=== PATIENT | male | born 1940 | race Caucasian/White ===

== ENCOUNTER 2017-04-01 22:23 | Emergency (ER) | payer OTHER ==
[~2017-04-01] VITALS: Ht 170.2 cm; Wt 77.3 kg
[~2017-04-01 22:23] MED LIST: ALAV10TA PO; ASPI81TA82 PO; BISC10SU RE; GUAI400T8 PO; KETO2SHA5 TOP; METO25 PO; OMPR20CCR PO; SIMV5TAB32 PO; TERA2CAP3 PO; [UNRECOGNIZED DRUG - CODE] TOP
[2017-04-01 22:25] VITALS: BP 136/62; PULSE 67; RESP 16; TEMP 97.8; O2SAT 95
[2017-04-01 22:41] VITALS: BP 136/62; PULSE 67; RESP 16; TEMP 97.8
[2017-04-01] MEDS ORDERED: SODIUM CHLORID 0.9% 500 ML INJ 500 ML IV ONE (22:45)
[2017-04-01] MEDS ORDERED: ONDANSETRON HCL 4 MG/2 ML VIAL IV PUSH ONE (22:45)
[2017-04-01] MEDS ORDERED: MORPHINE SULFATE 4 MG/ML INJ IV PUSH ONE (22:45)
--- NOTE | 2017-04-01 22:45 | PD ---
HPI Chief Complaint: Abdominal Pain Time Seen by Provider: 22:32 Travel History International Travel<30 days: No Contact w/Intl Traveler<30days: No History of Present Illness HPI This is a 76-year-old male who presents to the emergency department having had a colonoscopy this morning with increasing lower abdominal discomfort throughout the day described as a soreness, nonradiating, moderate severity. He reports he's vomited several times, and he had some loose stools. The stools of been nonbloody. He does feel like he has a fever. PFSH Past Medical History Asthma: No Autoimmune Disease: No Blood Disorders: No Cancer: Yes High Cholesterol: Yes Chemotherapy: No COPD: Yes Cerebrovascular Accident: No Diabetes: No Endocrine: No Gastrointestinal Disorders: Yes GERD: Yes Glaucoma: No Headaches: No Hepatitis: No Hypertension: Yes Immune Disorder: No Musculoskeletal: No Neurologic: Yes Psychiatric: No Respiratory: Yes (MICROSIS FUNGI OF LUNGS) Integumentary: Yes Immunizations Current: Yes Myocardial Infarction: Yes (LA X2 ) Radiation Therapy: Yes Seizures: No Sickle Cell Disease: No Sleep Apnea: No Thyroid Disease: No Ulcer: No Past Surgical History Abdominal Surgery: Yes (APPENDECTOMY) AICD: No Appendectomy: Yes Arteriovenous Shunt: No Cardiac Surgery: Yes (QUADRUPLE BYPASS 16 YRS AGO) Cholecystectomy: No Coronary Artery Bypass Graft: Yes (quadruple) Ear Surgery: No Endocrine Surgery: No Eye Surgery: No Genitourinary Surgery: No Gynecologic Surgery: No Insulin Pump: No Joint Replacement: No Neurologic Surgery: No Oral Surgery: Yes (TONSILLECTOMY) Pacemaker: No Thoracic Surgery: No Tonsillectomy: Yes Other Surgery: Yes Social History Alcohol Use: No Tobacco Use: No (former) Substance Use: No Allergies-Medications (Allergen,Severity, Reaction): Coded Allergies: No Known Allergies (Verified , 04/23/16) Reported Meds & Prescriptions Reported Meds & Active Scripts Active Reported Biscolax (Bisacodyl) 10 Mg Sup 10 Mg RE Q48H Aspir-81 (Aspirin) 81 Mg Tab 81 Mg PO DAILY Vanicream (Emollient) Cre 1 Drop TOP DAILY Prilosec 20 Mg Cap (Omeprazole) 20 Mg Capcr 20 Mg PO BID Terazosin Hcl (Terazosin HCl) 2 Mg Cap 5 Mg PO DAILY Metoprolol Tartrate 25 mg (Metoprolol Tartrate) 25 Mg Tab 25 Mg PO BID Alavert (Loratadine) 10 Mg Tab 10 Mg PO DAILY PRN Ketoconazole 2 % Sha 1 Applic TOP BID Guaifenesin 400 Mg Tab 400 Mg PO QID Zocor (Simvastatin) 5 Mg Tab 20 Mg PO HS Review of Systems Except as stated in HPI: all other systems reviewed are Neg Physical Exam Narrative GENERAL:Well appearing, no acute distress SKIN: Focused skin assessment warm and dry. HEAD: Atraumatic. Normocephalic. EYES: Pupils equal and round. No injection or drainage. ENT: Moist mucous membranes NECK: Trachea midline. CARDIOVASCULAR: Regular rate and rhythm. No murmur appreciated. RESPIRATORY: Clear to auscultation. Breath sounds equal bilaterally. GASTROINTESTINAL: Abdomen soft,moderately tender to palpation in the left upper and lower quadrants and in the right lower quadrant with no rebound/guarding. Old incisional scar in the lower mid abdomen. MUSCULOSKELETAL: No obvious deformities. NEUROLOGICAL: Awake and alert. No obvious cranial nerve deficits. Moving all extremities. PSYCHIATRIC: Appropriate mood and affect; insight and judgment normal. Data Data Last Documented VS Vital Signs Date Time Temp Pulse Resp B/P Pulse Ox O2 Delivery O2 Flow Rate FiO2 04/01/17 22:46 16 04/01/17 22:41 97.8 67 136/62 04/01/17 22:25 95 Orders Complete Blood Count With Diff (04/01/17 22:40) Comprehensive Metabolic Panel (04/01/17 22:40) Lactic Acid (04/01/17 22:40) Ct Abd/Pel W Iv Contrast(Rout) (04/01/17 ) ^ Insert Iv (04/01/17 22:40) Ondansetron Inj (Zofran Inj) (04/01/17 22:45) Sodium Chlorid 0.9% 500 Ml Inj (Ns 500 M (04/01/17 22:45) Morphine Inj (Morphine Inj) (04/01/17 23:00) Urinalysis - C+S If Indicated (04/01/17 23:14) Lipase (04/01/17 23:00) Labs Laboratory Tests Test 04/01/17 04/01/17 23:00 23:21 White Blood Count 9.5 TH/MM3 Red Blood Count 4.96 MIL/MM3 Hemoglobin 15.4 GM/DL Hematocrit 45.5 % Mean Corpuscular Volume 91.8 FL Mean Corpuscular Hemoglobin 31.1 PG Mean Corpuscular Hemoglobin 33.9 % Concent Red Cell Distribution Width 12.2 % Platelet Count 187 TH/MM3 Mean Platelet Volume 9.4 FL Neutrophils (%) (Auto) 84.2 % Lymphocytes (%) (Auto) 6.9 % Monocytes (%) (Auto) 5.7 % Eosinophils (%) (Auto) 0.3 % Basophils (%) (Auto) 2.9 % Neutrophils # (Auto) 8.0 TH/MM3 Lymphocytes # (Auto) 0.7 TH/MM3 Monocytes # (Auto) 0.5 TH/MM3 Eosinophils # (Auto) 0.0 TH/MM3 Basophils # (Auto) 0.3 TH/MM3 CBC Comment DIFF FINAL Differential Comment Sodium Level 142 MEQ/L Potassium Level 4.0 MEQ/L Chloride Level 106 MEQ/L Carbon Dioxide Level 27.1 MEQ/L Anion Gap 9 MEQ/L Blood Urea Nitrogen 18 MG/DL Creatinine 1.10 MG/DL Estimat Glomerular Filtration 65 ML/MIN Rate Random Glucose 139 MG/DL Lactic Acid Level 1.1 mmol/L Calcium Level 9.3 MG/DL Total Bilirubin 0.6 MG/DL Aspartate Amino Transf 35 U/L (AST/SGOT) Alanine Aminotransferase 39 U/L (ALT/SGPT) Alkaline Phosphatase 90 U/L Total Protein 8.0 GM/DL Albumin 4.1 GM/DL Lipase 126 U/L Urine Color YELLOW Urine Turbidity CLEAR Urine pH 5.5 Urine Specific [place] 1.016 Urine Protein NEG mg/dL Urine Glucose (UA) NEG mg/dL Urine Ketones 15 mg/dL Urine Occult Blood TRACE Urine Nitrite NEG Urine Bilirubin NEG Urine Leukocyte Esterase NEG Urine RBC 0-3 /hpf Urine WBC 0-2 /hpf Urine Squamous Epithelial 0-5 /hpf Cells Urine Bacteria NONE /hpf Microscopic Urinalysis Comment CULT NOT INDICATED MDM Medical Decision Making Medical Screen Exam Complete: Yes Emergency Medical Condition: Yes Interpretation(s) Afebrile, no tachycardia, normotensive No leukocytosis 84% neutrophils Electrolytes are reassuring Lipase is normal Lactic acid is 1.1 Urinalysis: Some ketones Differential Diagnosis Perforation, diarrhea in the setting of colonoscopy prep, gastroenteritis, bowel obstruction, diverticulitis Narrative Course This is a 76-year-old male who presents to the emergency department with lower abdominal discomfort that started after having a colonoscopy this morning. He' s been having vomiting and loose stools. He also has been having some fevers and chills. He's nontoxic appearing on exam and has some tenderness in the lower abdomen with no peritoneal signs. Labs were obtained which were all reassuring. CT abdomen and pelvis will be obtained to rule out perforation. Ruth Brush MD Apr 01, 2017 22:45
[2017-04-01] MEDS ORDERED: MORPHINE SULFATE 8 MG/ML INJ IV PUSH ONE (23:00)
[2017-04-01 23:22] LABS: BASOPHIL # 0.3 TH/MM3 (0-0.2); BASOPHIL % 2.9 % (0.0-2.0); EOSINOPHIL % 0.3 % (0.0-4.0); HEMATOCRIT 45.5 % (39.0-51.0); LYMPH % 6.9 % (9.0-44.0); LYMPHOCYTE # 0.7 TH/MM3 (1.0-4.8); MEAN CELL VOLUME 91.8 FL (80.0-100.0); MEAN CORPUSCULAR HEMOGLOBIN 31.1 PG (27.0-34.0); MEAN CORPUSCULAR HGB CONC 33.9 % (32.0-36.0); MONO % 5.7 % (0.0-8.0); NEUT % 84.2 % (16.0-70.0); PLATELET COUNT 187 TH/MM3 (150-450); RED BLOOD COUNT 4.96 MIL/MM3 (4.50-5.90); RED CELL DISTRIBUTION WIDTH 12.2 % (11.6-17.2); WHITE BLOOD COUNT 9.5 TH/MM3 (4.0-11.0)
[2017-04-01 23:24] LABS: HEMO FLAGS DIFF FINAL
[2017-04-01 23:29] LABS: BLOOD, URINE TRACE (NEG); GLUCOSE,URINE NEG (NEG); KETONE, URINE 15 mg/dL (NEG); NITRITE,URINE NEG (NEG); PH, URINE 5.5 (5.0-8.5)
[2017-04-01 23:33] LABS: CHLORIDE 106 MEQ/L (98-107); SODIUM (NA) 142 MEQ/L (136-145)
[2017-04-01 23:35] VITALS: BP 138/66; PULSE 63; RESP 16; O2SAT 94
[2017-04-01 23:36] LABS: COMMENT (UR) CULT NOT INDICATED; CULTURE IF INDICATED CULT NOT INDICATED; RBC, URINE 0-3 /hpf (0-3); SQUAMOUS EPITHELIAL CELL URINE 0-5 /hpf (0-5); URINE COLOR YELLOW (YELLW/STRAW); WBC, URINE 0-2 /hpf (0-5)
[2017-04-01 23:37] LABS: ANION GAP 9 MEQ/L (5-15); BICARBONATE 27.1 MEQ/L (21.0-32.0); BLOOD UREA NITROGEN 18 MG/DL (7-18)
[2017-04-01 23:40] LABS: ALT (GPT) 39 U/L (12-78); AST (GOT) 35 U/L (15-37); GLOMERULAR FILTRATION RATE 65 ML/MIN (>89)
[2017-04-01 23:42] LABS: TOTAL BILIRUBIN ADULT 0.6 MG/DL (0.2-1.0)
[2017-04-01 23:43] LABS: ALKALINE PHOSPHATASE 90 U/L (45-117)
[2017-04-01] MEDS ORDERED: IOHEXOL 350 MG/ML 10 ML VIAL (for RAD DIAG) IV ONE (23:56)
--- NOTE | 2017-04-02 00:06 | RADRPT ---
EXAM DATE/TIME: 04/01/2017 23:45 [facility] COMPARISON: CT ABDOMEN & PELVIS W CONTRAST, December 20, 2013, 19:02. INDICATIONS : Left lower abdominal pain status post colonoscopy. IV CONTRAST: 100 cc Omnipaque 350 (iohexol) IV ORAL CONTRAST: No oral contrast ingested. RADIATION DOSE: 12.53 CTDIvol (mGy) MEDICAL HISTORY : Gastroesophageal reflux disease. Cardiovascular disease Carcinoma, not otherwise specified. SURGICAL HISTORY : Appendectomy. ENCOUNTER: Initial ACUITY: 1 day PAIN SCALE: 10/10 LOCATION: Left lower quadrant abdomen TECHNIQUE: Volumetric scanning of the abdomen and pelvis was performed. Using automated exposure control and ad justment of the mA and/or kV according to patient size, radiation dose was kept as low as reasonably achievable to obtain optimal diagnostic quality images. DICOM format image data is available electro nically for review and comparison. FINDINGS: LOWER LUNGS: The visualized lower lungs are clear. LIVER: Homogeneous density without lesion. There is no dilation of the biliary tree. No calcified gallston es. SPLEEN: Normal size without lesion. PANCREAS: Within normal limits. KIDNEYS: Normal in size and shape. There is no mass, stone or hydronephrosis. ADRENAL GLANDS: Within normal limits. VASCULAR: There is no aortic aneurysm. BOWEL/MESENTERY: Diverticulosis without diverticulitis. There are some mildly prominent small bowel loops in the upper to mid abdomen. No bowel obstruction. There is no free intraperitoneal air or fluid. ABDOMINAL WALL: Within normal limits. RETROPERITONEUM: There is no lymphadenopathy. BLADDER: No wall thickening or mass. REPRODUCTIVE: Prominent prostate containing calcifications. INGUINAL: There is no lymphadenopathy or hernia. MUSCULOSKELETAL: Within normal limits for patient age. CONCLUSION: 1. Mildly prominent small bowel loops in the mid abdomen without obstruction. 2. Status post cholecystectomy. 3. Prominent prostate. 4. Scattered diverticulosis without diverticulitis. Jaren Amin MD on April 02, 2017 at 0:02 Board Certified Radiologist. This report was verified electronically.
--- NOTE | 2017-04-02 00:23 | PD ---
Physical Exam Date Seen by Provider: Apr 02, 2017 Time Seen by Provider: 00:20 Narrative accepted in transfer of care from Dr Brush @ 0110 GENERAL: Well-developed elderly male in no acute distress no respiratory distress SKIN: Warm and dry. HEAD: Normocephalic. EYES: No scleral icterus. No injection or drainage. NECK: Supple, trachea midline. No JVD or lymphadenopathy. CARDIOVASCULAR: Regular rate and rhythm without murmurs, gallops, or rubs. RESPIRATORY: Breath sounds equal bilaterally. No accessory muscle use. GASTROINTESTINAL: Abdomen soft, non-tender, no guarding no rebound positive active bowel sounds. Nondistended. MUSCULOSKELETAL: No cyanosis, or edema. BACK: Nontender without obvious deformity. No CVA tenderness. Data Data Last Documented VS Vital Signs Date Time Temp Pulse Resp B/P Pulse Ox O2 Delivery O2 Flow Rate FiO2 04/02/17 01:27 97.8 62 16 148/63 97 Room Air Orders Complete Blood Count With Diff (04/01/17 22:40) Comprehensive Metabolic Panel (04/01/17 22:40) Lactic Acid (04/01/17 22:40) Ct Abd/Pel W Iv Contrast(Rout) (04/01/17 ) ^ Insert Iv (04/01/17 22:40) Ondansetron Inj (Zofran Inj) (04/01/17 22:45) Sodium Chlorid 0.9% 500 Ml Inj (Ns 500 M (04/01/17 22:45) Morphine Inj (Morphine Inj) (04/01/17 23:00) Urinalysis - C+S If Indicated (04/01/17 23:14) Lipase (04/01/17 23:00) Iohexol 350 Inj (Omnipaque 350 Inj) (04/01/17 23:56) Labs Laboratory Tests Test 04/01/17 04/01/17 23:00 23:21 White Blood Count 9.5 TH/MM3 Red Blood Count 4.96 MIL/MM3 Hemoglobin 15.4 GM/DL Hematocrit 45.5 % Mean Corpuscular Volume 91.8 FL Mean Corpuscular Hemoglobin 31.1 PG Mean Corpuscular Hemoglobin 33.9 % Concent Red Cell Distribution Width 12.2 % Platelet Count 187 TH/MM3 Mean Platelet Volume 9.4 FL Neutrophils (%) (Auto) 84.2 % Lymphocytes (%) (Auto) 6.9 % Monocytes (%) (Auto) 5.7 % Eosinophils (%) (Auto) 0.3 % Basophils (%) (Auto) 2.9 % Neutrophils # (Auto) 8.0 TH/MM3 Lymphocytes # (Auto) 0.7 TH/MM3 Monocytes # (Auto) 0.5 TH/MM3 Eosinophils # (Auto) 0.0 TH/MM3 Basophils # (Auto) 0.3 TH/MM3 CBC Comment DIFF FINAL Differential Comment Sodium Level 142 MEQ/L Potassium Level 4.0 MEQ/L Chloride Level 106 MEQ/L Carbon Dioxide Level 27.1 MEQ/L Anion Gap 9 MEQ/L Blood Urea Nitrogen 18 MG/DL Creatinine 1.10 MG/DL Estimat Glomerular Filtration 65 ML/MIN Rate Random Glucose 139 MG/DL Lactic Acid Level 1.1 mmol/L Calcium Level 9.3 MG/DL Total Bilirubin 0.6 MG/DL Aspartate Amino Transf 35 U/L (AST/SGOT) Alanine Aminotransferase 39 U/L (ALT/SGPT) Alkaline Phosphatase 90 U/L Total Protein 8.0 GM/DL Albumin 4.1 GM/DL Lipase 126 U/L Urine Color YELLOW Urine Turbidity CLEAR Urine pH 5.5 Urine Specific [place] 1.016 Urine Protein NEG mg/dL Urine Glucose (UA) NEG mg/dL Urine Ketones 15 mg/dL Urine Occult Blood TRACE Urine Nitrite NEG Urine Bilirubin NEG Urine Leukocyte Esterase NEG Urine RBC 0-3 /hpf Urine WBC 0-2 /hpf Urine Squamous Epithelial 0-5 /hpf Cells Urine Bacteria NONE /hpf Microscopic Urinalysis Comment CULT NOT INDICATED MDM Medical Record Reviewed: Yes Supervised Visit with SHADIA: No Interpretation(s) Last Impressions Abdomen/Pelvis CT 04/01/17 0000 Signed Impressions: Service Date/Time: Saturday, April 01, 2017 23:45 - CONCLUSION: 1. Mildly prominent small bowel loops in the mid abdomen without obstruction. 2. Status post cholecystectomy. 3. Prominent prostate. 4. Scattered diverticulosis without diverticulitis. Jaren Amin MD CBC & BMP Diagram 04/01/17 23:00 Differential Diagnosis accepted in transfer of care from Dr Brush; please refer to her dictation Narrative Course accepted in transfer of care from Dr Brush; follow up of CT results and patient disposition CT abdomen and pelvis resulted no evidence for bowel obstruction or perforation per reading radiologist a few loops of mildly prominent small bowel mid abdomen ; patient's blood pressure is 125/58 heart rate is 68 respirations are 16 and nonlabored room air O2 saturations 94% temperature is 97.8F GCS is 15; patient reports that his abdominal pain has resolved; physical exam abdomen is soft nontender no guarding no rebound positive active bowel sounds without tinkle or grind for obstruction nondistended nonrigid. Patient feels well. Total white cell count is normal with normal range lactic acid of 1.1; Patient is given a trial of oral hydration. Plan is to allow patient to be discharged to home with close follow-up to his managing provider. Patient is able to take oral hydration well. Diagnosis Primary Impression: Abdominal pain Qualified Code: R10.33 - Periumbilical abdominal pain Referrals: [facility] 1 day Primary Care Physician 1 day Patient Instructions: General Instructions, Narcotic given in the ED Additional Instruction: Follow clear liquid diet for next 12-24 hours advance as tolerated bland/Fidelia diet and regular diet Follow-up with your primary care provider and area operations manager call office in a.m. Monitor temperature every 4 hours with thermometer take as needed acetaminophen for fever 100.4F or greater Return to the emergency department for pain fever vomiting or any concerns Takes Zofran as prescribed as needed for nausea and/or vomiting Med/Other Pt SpecificInfo: Prescription(s) given Scripts Ondansetron Odt (Zofran Odt)4 Mg Tab4 Mg SL Q6HR PRN (Nausea/Vomiting) #10 TAB Ref 0 Prov:Juliette Alamo MD 04/02/17 Disposition: DISCHARGE HOME Condition: Stable Juliette Alamo MD Apr 02, 2017 00:23
[2017-04-02 00:48] VITALS: BP 125/58; PULSE 68; RESP 16; TEMP 97.8; O2SAT 94
[2017-04-02 01:27] VITALS: BP 148/63; PULSE 62; RESP 16; TEMP 97.8; O2SAT 97
[2017-04-02] MEDS ORDERED: ZOFR4TAB3 SL (01:53)
== END 2017-04-02 02:10 | disposition home or self-care (01) ==
LOC: PHED 22:23
DX: R10.33 Periumbilical pain (principal); K57.30 Diverticulosis of large intestine without perforation or abscess without bleeding; Z90.49 Acquired absence of other specified parts of digestive tract; J44.9 Chronic obstructive pulmonary disease, unspecified; I10 Essential (primary) hypertension; K21.9 Gastro-esophageal reflux disease without esophagitis; E78.00 Pure hypercholesterolemia, unspecified; I25.2 Old myocardial infarction; Z95.1 Presence of aortocoronary bypass graft
CPT/HCPCS: 74177; 80053; 81001; 83605; 83690; 85025; 96361; 96374; 96375; 99285; J2270; J2405; J7040; Q9967

== ENCOUNTER 2018-05-23 21:37 | Inpatient (IN) ==
--- NOTE | 2018-05-23 23:05 | XR ---
EXAM DATE: 05/23/2018 10:57 PM EDT AGE/SEX: 77 years / Male INDICATIONS: Nausea and cold symptoms. CLINICAL DATA: This is the patient's initial encounter. Patient reports that signs and symptoms have been present for 1 day and indicates a pain score of 0/10. MEDICAL/SURGICAL HISTORY: Chronic obstructive pulmonary disease. CABG. COMPARISON: [facility], CT ABDOMEN & PELVIS W CONTRAST, 04/01/2017. . FINDINGS: No infiltrate, effusion or pneumothorax demonstrated. Heart size is normal. Patient has had previous median sternotomy and coronary artery bypass graft operation. CONCLUSION: No acute cardiopulmonary disease demonstrated. Electronically signed by: Lukasz Boyer MD 05/23/2018 11:04 PM EDT
[2018-05-23 23:09] LABS: Baso % (Auto) 0.2 % (0.0-2.0); Eos % (Auto) 0.3 % (0.0-4.0); Hematocrit 43.2 % (39.0-51.0); Hemoglobin 15.2 gm/dL (13.0-17.0); Lymph # (Auto) 0.7 th/mm3 (1.0-4.8); Lymph % (Auto) 12.2 % (9.0-44.0); Mean Corpuscular HGB Conc 35.2 % (32.0-36.0); Mean Corpuscular Hemoglobin 31.8 pg (27.0-34.0); Mean Corpuscular Volume 90.4 fL (80.0-100.0); Mean Platelet Volume 9.8 fL (7.0-11.0); Mono # (Auto) 0.5 th/mm3 (0.0-0.9); Mono % (Auto) 9.8 % (0.0-8.0); Neut # (Auto) 4.2 th/mm3 (1.8-7.7); Neut % (Auto) 77.5 % (16.0-70.0); Platelet Count 180 th/mm3 (150-450); Red Blood Count 4.78 mil/mm3 (4.50-5.90); White Blood Count 5.4 th/mm3 (4.0-11.0)
[2018-05-23 23:22] LABS: Activated Partial Thrombo Time 23.8 sec (24.3-30.1); Prothrombin Time 10.4 sec (9.8-11.6)
[2018-05-23 23:42] LABS: Alanine Aminotransferase 20 U/L (12-78); Albumin 3.7 g/dL (3.4-5.0); Anion Gap 12 meq/L (5-15); Aspartate Aminotransferase 20 U/L (15-37); Blood Urea Nitrogen 22 mg/dL (7-18); Calcium 9.1 mg/dL (8.5-10.1); Carbon Dioxide 30.4 meq/L (21.0-32.0); Chloride 94 meq/L (98-107); Glomerular Filtration Rate 65 mL/min (>89); Glucose,Random 137 mg/dL (74-106); Lipase 174 U/L (73-393); Potassium 3.5 meq/L (3.5-5.1); Sodium 136 meq/L (136-145)
[2018-05-23 23:46] LABS: Alkaline Phosphatase 72 U/L (45-117); Creatine Kinase 161 U/L (39-308)
[2018-05-24] MEDS ORDERED: Sodium Chlor 0.9% Inj 500 ML IV.SIG ONE (00:08)
[2018-05-24] MEDS ORDERED: Morphine Inj 4 MG/ML Vial IV.PUSH ONE (00:08)
--- NOTE | 2018-05-24 00:28 | ED ---
HPI General Chief complaint: Abdominal Pain Stated complaint: vomitting/cold symp Time Seen by Provider: 05/23/18 22:22 Source: patient and family Limitations: no limitations History of Present Illness HPI narrative: The patient is a 77 year old male who presents to the [facility] emergency department with a history of abdominal pain that he reports recurred on afternoon. The patient reports that he has a history of abdominal pain in the past related to recurrent bowel obstructions. He reports that he has had abdominal surgeries twice related to bowel obstructions with adhesion lysis. The patient reports that his last bowel obstruction occurred when he was visiting [place] in November 2017. The patient reports that the abdominal pain is generalized. He reports that the pain has been sharp in character. He reports that it waxes and wanes in severity. He reports that he has had vomiting too many times to count. He reports that he has had vomiting 4 times today. He reports also having intermittent diarrhea. He denies having any diarrhea today, however yesterday he had 6 episodes. He denies having any known fevers. He reports that he has been seen by his [facility] physician approximately a month ago and was referred for additional testing. He reports that this past he had some testing done, however he does not know the results or the name of the tests that were completed. He denies being seen by a etched circuit processor. On review of systems otherwise, the patient denies having any recent cough or congestion, neck pain, chest pain, shortness of breath, or neurologic symptoms. The patient reports that he has been urinating less frequently today. He reports that he is only urinated once. He denies having any dysuria, urinary urgency, or urinary frequency. Related Data Home Medications Medication Instructions Recorded Confirmed metoprolol tartrate 25 mg PO BID 05/23/18 05/23/18 omeprazole 20 mg PO DAILY 05/23/18 05/23/18 simvastatin 10 mg PO QPM 05/23/18 05/23/18 tamsulosin 0.4 mg PO DAILY 05/23/18 05/23/18 Allergies Allergy/AdvReac Type Severity Reaction Status Date / Time No Known Allergies Allergy Unverified 05/23/18 21:53 Review of Systems ROS: all other systems reviewed are negative (Except for that which was mentioned in the HPI) [facility] Medical History Medical History COPD (chronic obstructive pulmonary disease) (Acute) Enlarged prostate (Acute) Heart attack (Acute) High cholesterol (Acute) Hypertension (Acute) Bowel obstruction (Acute) GERD (gastroesophageal reflux disease) (Acute) Surgical History Surgical History H/O coronary artery bypass surgery (Acute) History of cardiac cath (Acute) History of appendectomy (Acute) Hx of tonsillectomy (Acute) Social History Social History Substance History: No History of Abuse Second Hand Smoke Exposure: No Smoking Status: Never smoker How Often Do You Have a Drink Containing Alcohol: Never Recent Travel in [facility] within the Last 8 Weeks: No Recent Out of Country Travel within the Last 8 Weeks: No Immunization History Tetanus Immunization: <5 Years Hx Influenza Vaccine This Season: No Exam Const General: cooperative, well developed and acute distress (Reportedly related to abdominal pain.) mild Nutritional Appearance: well nourished Orientation: alert, awake and oriented x3 HENMT Head: normocephalic and atraumatic Nose: no nasal discharge and no epistaxis Mouth: moist mucous membranes Throat: posterior oropharynx normal and uvula midline Eyes Sclera: normal sclerae Pupils: PERRL Neck Neck: no meningeal signs, trachea midline and no JVD Resp Effort & Inspection: no use of accessory muscles Auscultation: clear to auscultation bilaterally Cardio Rate: regular rate Rhythm: regular rhythm Heart Sounds: no murmurs GI Inspection: distended (Mildly distended) Palpation: soft, no hepatosplenomegaly, no guarding, not rigid and tender in the epigastrum, in the LLQ and in the LUQ; not in the RLQ, not in the RUQ, not at McBurney's point and Cruz's sign negative Auscultation: hypoactive bowel sounds Back/Spine/Pelvis Back: no CVA tenderness Skin General: dry skin (warm) Neuro General: alert, awake and oriented x3 Cranial Nerves: other Speech: speech normal Motor: no movement abnormalities noted Extrem General: normal to inspection (No calf tenderness on palpation. 2+ pulses in all 4 extremities.), no clubbing, no cyanosis and no edema Psych Mood: congruent mood Affect: normal affect Judgment: judgment good Course Consultations Consultation #1: The patient's case including history, pertinent physical examination findings, and laboratory studies were discussed with Dr. Bobby. It was agreed that the patient would be admitted to the hospitalist service. Initial Documented Vital Signs Temperature 98 F 05/23/18 21:53 Pulse Rate 68 05/23/18 21:53 Respiratory Rate 16 05/23/18 21:53 Blood Pressure 130/61 05/23/18 21:53 Pulse Oximetry 97 05/23/18 21:53 Last Documented Vital Signs Temperature 98.1 F 05/23/18 23:02 Pulse Rate 63 05/24/18 05:42 Respiratory Rate 18 05/24/18 05:42 Blood Pressure 166/72 H 05/24/18 05:42 Pulse Oximetry 93 L 05/24/18 05:42 Medical Decision Making MDM Narrative Medical decision making narrative: During the course of the patient's emergency department visit, the patient's history, examination, and differential diagnosis were reviewed with the patient. The patient was placed on a clinical research monitor with oximetry and frequent blood pressure monitoring. The patient had IV access obtained and blood work sent for analysis. Diagnostic evaluation was started regarding the patient's abdominal pain, vomiting, and diarrhea. The patient was initially provided normal saline IV fluids, morphine for pain, Zofran for nausea. The patient's diagnostic evaluation is remarkable for a white count of 5.4, platelets 180, neutrophil percent 77.5, hemoglobin 15.2, PT 10.4, PTT 23.8, chemistry is remarkable for troponin I of less than 0.02, glucose 137, GFR of 65 , chloride 94, BUN 22, lipase within normal limits, lactic acid is 1.5, urinalysis shows small occult blood, moderate mucus, hazy urine otherwise unremarkable. A chest x-ray shows no acute cardiopulmonary disease, CT scan of the abdomen and pelvis shows a study that is limited by streak artifact from barium within the colon. There is evidence of acute small bowel obstruction probably at the level of the proximal ileum and presumably related to adhesions. No perceptible mass. The patient will have an NG tube placed to low intermittent suction. The patient will be admitted to the hospital for small bowel obstruction related to adhesions. The patient's results were discussed with the patient, including the plan of care. I explained that further testing and/ or monitoring is indicated based on the patient's history, examination, and/ or laboratory findings. Therefore, I recommended admission for additional evaluation. The patient expressed understanding and was agreeable with this plan. The patient was admitted to the hospital in stable condition and sent to a bed under the care of the [facility] service. Medical Screen Exam Complete: Yes Emergency Medical Condition: Yes Differential Diagnosis Differential Diagnosis: Bowel obstruction, versus acute pancreatitis, versus gastroenteritis, versus colitis, versus ischemic bowel Medical Records Medical records reviewed: Yes I reviewed the patient's medical records. Lab Data Lab results reviewed: Yes I reviewed the patient's lab results. Result diagrams: 05/23/18 22:55 05/23/18 22:55 Lab Results 05/23/18 05/23/18 05/23/18 Range/Units 22:55 22:55 22:55 WBC 5.4 (4.0-11.0) th/mm3 RBC 4.78 (4.50-5.90) mil/mm3 Hgb 15.2 (13.0-17.0) gm/dL Hct 43.2 (39.0-51.0) % MCV 90.4 (80.0-100.0) fL MCH 31.8 (27.0-34.0) pg MCHC 35.2 (32.0-36.0) % RDW 13.0 (11.6-17.2) % Plt Count 180 (150-450) th/mm3 MPV 9.8 (7.0-11.0) fL Neut % (Auto) 77.5 H (16.0-70.0) % Lymph % (Auto) 12.2 (9.0-44.0) % Creek % (Auto) 9.8 H (0.0-8.0) % Eos % (Auto) 0.3 (0.0-4.0) % Baso % (Auto) 0.2 (0.0-2.0) % Neut # (Auto) 4.2 (1.8-7.7) th/mm3 Lymph # (Auto) 0.7 L (1.0-4.8) th/mm3 Creek # (Auto) 0.5 (0.0-0.9) th/mm3 Eos # (Auto) 0.0 (0.0-0.4) th/mm3 Baso # (Auto) 0.0 (0.0-0.2) th/mm3 WBC Differential . Differential Comment Auto diff final PT 10.4 (9.8-11.6) sec INR 1.0 Ratio APTT 23.8 L (24.3-30.1) sec Sodium 136 (136-145) meq/L Potassium 3.5 (3.5-5.1) meq/L Chloride 94 L (98-107) meq/L Carbon Dioxide 30.4 (21.0-32.0) meq/L Anion Gap 12 (5-15) meq/L BUN 22 H (7-18) mg/dL Creatinine 1.10 (0.60-1.30) mg/dL Estimated GFR 65 L (>89) mL/min Random Glucose 137 H (74-106) mg/dL Lactic Acid (0.4-2.0) mmol/L Calcium 9.1 (8.5-10.1) mg/dL Total Bilirubin 0.6 (0.2-1.0) mg/dL AST 20 (15-37) U/L ALT 20 (12-78) U/L Alkaline Phosphatase 72 (45-117) U/L Total Creatine Kinase 161 (39-308) U/L CK-MB (CK-2) Less than 1.0 (0.5-3.6) ng/mL Troponin I Less than 0.02 L (0.02-0.05) ng/mL Total Protein 8.0 (6.4-8.2) g/dL Albumin 3.7 (3.4-5.0) g/dL Lipase 174 (73-393) U/L Urine Color (Yellw/Straw) Urine Clarity (Clear) Urine pH (5.0-8.5) Ur Specific Hancock (1.002-1.035) Urine Protein (Neg-Trace) mg/dL Urine Glucose (UA) (Negative) mg/dL Urine Ketones (Negative) mg/dL Urine Occult Blood (Negative) Urine Nitrate (Negative) Urine Bilirubin (Negative) Urine Urobilinogen (Less than 2) mg/dL Ur Leukocyte Esterase (Negative) Urine RBC (0-3) /hpf Urine WBC (0-5) /hpf Ur Squamous Epith Cells (0-5) /hpf Urine Mucus (Occasional) /lpf Micro UA Comment Ur Microscopic Review Urine Culture Comments 05/23/18 05/24/18 Range/Units 22:55 05:23 WBC (4.0-11.0) th/mm3 RBC (4.50-5.90) mil/mm3 Hgb (13.0-17.0) gm/dL Hct (39.0-51.0) % MCV (80.0-100.0) fL MCH (27.0-34.0) pg MCHC (32.0-36.0) % RDW (11.6-17.2) % Plt Count (150-450) th/mm3 MPV (7.0-11.0) fL Neut % (Auto) (16.0-70.0) % Lymph % (Auto) (9.0-44.0) % Creek % (Auto) (0.0-8.0) % Eos % (Auto) (0.0-4.0) % Baso % (Auto) (0.0-2.0) % Neut # (Auto) (1.8-7.7) th/mm3 Lymph # (Auto) (1.0-4.8) th/mm3 Creek # (Auto) (0.0-0.9) th/mm3 Eos # (Auto) (0.0-0.4) th/mm3 Baso # (Auto) (0.0-0.2) th/mm3 WBC Differential Differential Comment PT (9.8-11.6) sec INR Ratio APTT (24.3-30.1) sec Sodium (136-145) meq/L Potassium (3.5-5.1) meq/L Chloride (98-107) meq/L Carbon Dioxide (21.0-32.0) meq/L Anion Gap (5-15) meq/L BUN (7-18) mg/dL Creatinine (0.60-1.30) mg/dL Estimated GFR (>89) mL/min Random Glucose (74-106) mg/dL Lactic Acid 1.5 (0.4-2.0) mmol/L Calcium (8.5-10.1) mg/dL Total Bilirubin (0.2-1.0) mg/dL AST (15-37) U/L ALT (12-78) U/L Alkaline Phosphatase (45-117) U/L Total Creatine Kinase (39-308) U/L CK-MB (CK-2) (0.5-3.6) ng/mL Troponin I (0.02-0.05) ng/mL Total Protein (6.4-8.2) g/dL Albumin (3.4-5.0) g/dL Lipase (73-393) U/L Urine Color Yellow (Yellw/Straw) Urine Clarity Hazy H (Clear) Urine pH 5.0 (5.0-8.5) Ur Specific Hancock 1.013 (1.002-1.035) Urine Protein Negative (Neg-Trace) mg/dL Urine Glucose (UA) Negative (Negative) mg/dL Urine Ketones Trace (Negative) mg/dL Urine Occult Blood Small H (Negative) Urine Nitrate Negative (Negative) Urine Bilirubin Negative (Negative) Urine Urobilinogen Less than 2 (Less than 2) mg/dL Ur Leukocyte Esterase Negative (Negative) Urine RBC 1 (0-3) /hpf Urine WBC 2 (0-5) /hpf Ur Squamous Epith Cells <1 (0-5) /hpf Urine Mucus Moderate H (Occasional) /lpf Micro UA Comment Culture not ind Ur Microscopic Review Not Reportable Urine Culture Comments Culture not ind Imaging Data Radiologist's impression: Chest X-Ray 05/23/18 22:38 CONCLUSION: No acute cardiopulmonary disease demonstrated. Abdomen/Pelvis CT 05/24/18 00:00 CONCLUSION: Study limited by metallic streak artifact from barium within the colon. There is evidence of acute small bowel obstruction, probably at the level of the proximal ileum and presumably related to adhesion. No perceptible mass. ECG Data Attestation: I personally reviewed and interpreted this ECG as follows: Interpretation: Patient had a EKG done on arrival. The patient's EKG reveals a sinus rhythm with occasional supraventricular premature complexes, heart rate of 61, QRS duration is 108 ms, QTC [address] segment elevation is noted. Q waves are noted in lead III, aVF, lead II. Discharge Plan Discharge Disposition Patient Disposition: 30 Still Patient Discharge Details Diagnosis: SBO (small bowel obstruction) Physicians Team ED Provider: Yessy Shah Primary Care Provider: [facility] 's Attending Provider: Presley Nagel Other Providers: Sam Velarde Discharge Interventions Interventions: Vital Signs Last Done: 05/24/18 03:00 Status ED Status: Admitted Patient
--- NOTE | 2018-05-24 00:45 | CT ---
EXAM DATE: 05/24/2018 12:29 AM EDT AGE/SEX: 77 years / Male INDICATIONS: Diffuse abdominal pain X one week. Patient had a barium study done and has no t been able to eat or drink since. CLINICAL DATA: This is the patient's initial encounter. Patient reports that signs and symptoms have been present for 1 week and indicates a pain score of 6/10. MEDICAL/SURGICAL HISTORY: Chronic obstructive pulmonary disease. Hypertension. Gastroesophage al reflux disease. Myocardial infarction, enlarged prostate CABG. Appendectomy. Tonsillectomy. RADIATION DOSE: 6.64 CTDI (mGy) COMPARISON: [facility], CT ABDOMEN & PELVIS W CONTRAST, 04/01/2017. . TECHNIQUE: Multiple contiguous axial images were obtained through the abdomen. Images were obtained using multiple row detector helical technique. Using automated exposure control and adjustment of the mA and/or kV according to patient size, radiation dose was kept as low as reasonably achievable to o btain optimal diagnostic quality images. DICOM format image data is available electronically for rev iew and comparison. FINDINGS: Dense contrast with associated metallic streak artifact is present in the colon, presumably a recent barium enema. Colon is decompressed. There are diverticula of the sigmoid colon but no perceptible ac marco colonic inflammatory changes. Proximal portions of the small bowel are distended. The mid and distal ileum are decompressed. I charlotte rowdy there is transition in the anterior portions of the upper pelvic cavity. No free fluid or free ai r demonstrated. Only mild distention of the stomach at the time of imaging. No acute solid organ abnormality demonstrated. Atherosclerosis of the abdominal aorta noted. No aneurysm. Visualized lung bases are clear. CONCLUSION: Study limited by metallic streak artifact from barium within the colon. There is evidence of acute small bowel obstruction, probably at the level of the proximal ileum and presumably related to adhesion. No perceptible mass. Electronically signed by: Lukasz Boyer MD 05/24/2018 12:44 AM EDT
[2018-05-24] MEDS ORDERED: Bisacodyl 10 MG Supp RECTAL PRN (02:15)
[2018-05-24] MEDS: Sod Chloride 0.9% Inj 1,000 ML IV.CONT SCH ×2 (02:22→13:13)
[2018-05-24] MEDS ORDERED: Morphine Inj 4 MG/ML Vial IV.PUSH PRN ×2 (02:30)
--- NOTE | 2018-05-24 02:59 | P.HPIM ---
History of Present Illness Primary Care Physician: Physician [facility] History of Present Illness: This is a 77-year-old male with a PMH of HTN, Hyperlipidemia, COPD and h/o SBO who presented to the ER w/ complaints of abdominal pain x3 days. Reports pain is intermittent, moderate-severe, 8/10, non-radiating, associated w/ nausea/ vomiting. Denies fever. On arrival, BP 130/61, HR 68, O2 sat 97% on RA, Afebrile. CBC essentially unremarkable. INR 1.0. Chemistry unremarkable except for GFR 65, BUN 22. CXR with no acute findings. CT Abdomen/Pelvis with acute small bowel obstruction, probably at the level of proximal ileum presumably related to adhesion, no mass. - Diagnosis (1) SBO (small bowel obstruction) (2) Dehydration Inpatient Certification: I certify that the inpatient services were ordered in accordance with Medicare regulations governing the order. This includes certification that hospital inpatient services are reasonable and necessary and in the case of services not specified as inpatient-only under 42 CFR 419.22(n), that they are appropriately provided as inpatient services in accordance to with the 2-midnight benchmark under 43 CFR 412.3(e) Estimated Total Length of Stay (Days): 2 Plans for Post Hospital Care: Not yet determined Review of Systems PAST FAMILY HISTORY: Reviewed. No h/o DM or CAD All other systems reviewed negative except as stated in HPI [facility] - History History Provided By: Patient - Medical History Medical History: Medical History (Last Updated 05/24/18 @ 00:25 by Yessy Shah MD) COPD (chronic obstructive pulmonary disease) Enlarged prostate Heart attack High cholesterol Hypertension Bowel obstruction GERD (gastroesophageal reflux disease) - Surgical History Surgical History: Surgical History (Last Reviewed 05/24/18 @ 00:24 by Yessy Shah MD) H/O coronary artery bypass surgery History of cardiac cath History of appendectomy Hx of tonsillectomy - Tobacco History Second Hand Smoke Exposure: No Smoking Status: Never smoker - Alcohol History How Often Do You Have a Drink Containing Alcohol: Never - Substance Use History Substance History: No History of Abuse - Travel History Recent Travel in the [place] Within the Last 8 Weeks: No Recent Travel Out of the Country Within the Last 8 Weeks: No - Immunization History Tetanus Immunization: <5 Years Hx Influenza Vaccine This Season: No Medications and Allergies Active Medications: Active Medications Al Hydroxide/Mg Hydroxide (Milk Of Magnesia Liq) 30 ml PO Q12H PRN PRN Reason: Mild Constipation Bisacodyl (Dulcolax Supp) 10 mg RECTAL DAILY PRN PRN Reason: SEVERE CONSITIPATION Sodium Chloride (Ns Inj) 1,000 mls @ 100 mls/hr IV.CONT .Q10H [facility] Last Admin: 05/24/18 02:22 Dose: 100 mls/hr Lactulose (Lactulose Liq) 30 ml PO DAILY PRN PRN Reason: SEVERE CONSITIPATION Morphine Sulfate (Morphine Inj) 1 mg IV.PUSH Q4H PRN PRN Reason: PAIN 3-5 Morphine Sulfate (Morphine Inj) 2 mg IV.PUSH Q4H PRN PRN Reason: PAIN 6-10 Ondansetron HCl (Zofran Inj) 4 mg IV.PUSH Q6H PRN PRN Reason: NAUSEA OR VOMITING Senna/Docusate Sodium (Pratibha-Colace) 1 tab PO BID MELISSA Sennosides (Senokot) 17.2 mg PO Q12H PRN PRN Reason: Moderate Constipation Sodium Chloride (Ns Flush) 2 ml IV.FLUSH PRN PRN PRN Reason: FLUSH AFTER USING IV ACCESS Allergies Allergy/AdvReac Type Severity Reaction Status Date / Time No Known Allergies Allergy Unverified 05/23/18 21:53 Home Medications Medication Instructions Recorded Confirmed Type metoprolol tartrate 25 mg PO BID 05/23/18 05/23/18 History omeprazole 20 mg PO DAILY 05/23/18 05/23/18 History simvastatin 10 mg PO QPM 05/23/18 05/23/18 History tamsulosin 0.4 mg PO DAILY 05/23/18 05/23/18 History Exam Vital signs: Vital Signs 05/23/18 21:53 05/23/18 21:58 05/23/18 22:45 Temperature 98 F Pulse Rate 68 71 Respiratory Rate 16 18 Blood Pressure 130/61 177/71 H Pulse Oximetry 97 97 97 05/23/18 23:02 Temperature 98.1 F Pulse Rate Respiratory Rate Blood Pressure Pulse Oximetry Intake & Output 05/23/18 05/23/18 05/24/18 06:59 18:59 06:59 Intake Total 500 / 500 Balance 500 / 500 Weight 74.843 kg Intake: IV 500 / 500 NS Inj 500 ML @ Wide Open IV. 500 / 500 SIG BOLUS ONE Rx#:[id number] Narrative: PE: GENERAL: Very pleasant elderly [place] male in no acute distress, appears comfortable. at bedside. HEENT: PERRLA, EOMI. No scleral icterus or conjunctival pallor. No lid lag or facial droop. CARDIOVASCULAR: Regular rate and rhythm. No obvious murmurs to auscultation. No chest tenderness to palpation. RESPIRATORY: No obvious rhonchi or wheezing. Clear to auscultation. Breath sounds equal bilaterally. GASTROINTESTINAL: Abdomen soft, non-tender, nondistended. BS normal. MUSCULOSKELETAL: Extremities without clubbing, cyanosis, or edema. No obvious deformities. NEUROLOGICAL: Awake, alert and oriented x4. No focal neurologic deficits. Moving both upper and lower extremities spontaneously. Results - Labs CBC & Chem 7: 05/23/18 22:55 05/23/18 22:55 Labs: Short CBC 05/23/18 Range/Units 22:55 WBC 5.4 (4.0-11.0) th/mm3 Hgb 15.2 (13.0-17.0) gm/dL Hct 43.2 (39.0-51.0) % Plt Count 180 (150-450) th/mm3 BMP 05/23/18 22:55 Sodium 136 Potassium 3.5 Chloride 94 L Carbon Dioxide 30.4 BUN 22 H Creatinine 1.10 Calcium 9.1 Cardiac Enzymes 05/23/18 Range/Units 22:55 Total Creatine Kinase 161 (39-308) U/L CK-MB (CK-2) Less than 1.0 (0.5-3.6) ng/mL Troponin I Less than 0.02 L (0.02-0.05) ng/mL Liver Function 05/23/18 Range/Units 22:55 Total Bilirubin 0.6 (0.2-1.0) mg/dL AST 20 (15-37) U/L ALT 20 (12-78) U/L Alkaline Phosphatase 72 (45-117) U/L Albumin 3.7 (3.4-5.0) g/dL - Imaging Impressions Chest X-Ray 05/23/18 22:38 CONCLUSION: No acute cardiopulmonary disease demonstrated. Abdomen/Pelvis CT 05/24/18 00:00 CONCLUSION: Study limited by metallic streak artifact from barium within the colon. There is evidence of acute small bowel obstruction, probably at the level of the proximal ileum and presumably related to adhesion. No perceptible mass. Caprini VTE Risk Assessment Caprini VTE Risk Assessment: No/Low Risk (score <= 1) Caprini Risk Assessment Model: Point Value = 1 Point Value = 2 Point Value = 3 Point Value = 5 Age 41-60 Minor surgery BMI > 25 kg/m2 Swollen legs Varicose veins or History of unexplained or recurrent spontaneous Oral contraceptives or hormone replacement Sepsis (< 1 month) Serious lung disease, including pneumonia (< 1 month) Abnormal pulmonary function Acute myocardial infarction Congestive heart failure (< 1 month) History of inflammatory bowel disease Medical patient at bed rest Age 61-74 Arthroscopic surgery Major open surgery (> 45 min) Laparoscopic surgery (> 45 min) Malignancy Confined to bed (> 72 hours) Immobilizing plaster cast Central venous access Age >= 75 History of VTE Family history of VTE Factor V Leiden Prothrombin 43714H Lupus anticoagulant Anticardiolipin antibodies Elevated serum homocysteine Heparin-induced thrombocytopenia Other congenital or acquired thrombophilia Stroke (< 1 month) Elective arthroplasty Hip, pelvis, or leg fracture Acute spinal cord injury (< 1 month) Prophylaxis Regimen: Total Risk Factor Score Risk Level Prophylaxis Regimen 0-1 Low Early ambulation 2 Moderate Order ONE of the following: *Sequential Compression Device (SCD) *Heparin 5000 units SQ BID 3-4 Higher Order ONE of the following medications: *Heparin 5000 units SQ TID *Enoxaparin/Lovenox 40 mg SQ daily (WT < 150 kg, CrCl > 30 mL/min) *Enoxaparin/Lovenox 30 mg SQ daily (WT < 150 kg, CrCl > 10-29 mL/min) *Enoxaparin/Lovenox 30 mg SQ BID (WT < 150 kg, CrCl > 30 mL/min) AND/OR *Sequential Compression Device (SCD) 5 or more Highest Order ONE of the following medications: *Heparin 5000 units SQ TID (Preferred with Epidurals) *Enoxaparin/Lovenox 40 mg SQ daily (WT < 150 kg, CrCl > 30 mL/min) *Enoxaparin/Lovenox 30 mg SQ daily (WT < 150 kg, CrCl > 10-29 mL/min) *Enoxaparin/Lovenox 30 mg SQ BID (WT < 150 kg, CrCl > 30 mL/min) AND *Sequential Compression Device (SCD) Assessment and Plan - Assessment (1) SBO (small bowel obstruction) Code(s): K56.609 - Unspecified intestinal obstruction, unspecified as to partial versus complete obstruction Status: Acute (2) Dehydration Code(s): E86.0 - Dehydration Status: Acute - Plan A/P: 1. SBO: Recurrent. H/o SBO secondary to adhesions requiring surgical intervention in the past, now w/ abdominal pain, nausea/vomiting. CT Abd/ Pelvis w/ acute obstruction in prox ileum due to adhesions, no mass, images reviewed. NPO, NGT, IVF, analgesics/antiemetics as needed, Consult Gen Sx for further eval 2. Dehydration: BUN 22, GFR 65, IVF for hydration, repeat labs in am, monitor I/O 3. DVT Prophylaxis: SCD/teds. 4. Social work for DC planning as needed. 5. Case discussed at length with the ER physician, lab/record/imaging reviewed by me.
[2018-05-24 06:02] LABS: Bilirubin,Urine Negative (Negative); Clarity,Urine Hazy (Clear); Color,Urine Yellow (Yellw/Straw); Glucose,Urine (UA) Negative (Negative); Leukocyte Esterase,Urine Negative (Negative); Mucus,Urine Moderate /lpf (Occasional); Nitrite,Urine Negative (Negative); Specific Gravity,Urine 1.013 (1.002-1.035); Squamous Epithelial Cell,Urine <1 /hpf (0-5)
[2018-05-24] MEDS: Senna/Docusate Sodium 8.6/50 MG Tablet PO SCH ×2 (09:07→22:30)
--- NOTE | 2018-05-24 11:18 | P.CONGS ---
HPI Gen Surgery Consult Note Consult date: 05/24/18 Reason for consult: other (abdominal pain; recurrent SBO) Requesting physician: Viridiana Bobby Narrative: This is a 77 year old male with a past medical history hypertension, dyslipidemia, COPD, enlarged prostate, GERD and recurrent small bowel obstructions. He reports that he has had on and off abdominal pain for the past two weeks. He has what sounds like a possible small bowel follow through with barium contrast done at the [place] last week. He developed nausea and vomiting on . He reports his last bowel movement was Thursday but he does continue to have flatus. He reports his abdominal pain is greatly improved now. A CT abdomen/pelvis was obtained which indicate small bowel obstruction at the level of the proximal ileum questionably secondary to adhesions although the barium contrast is visible to the colon. A KUB was done today which again shows contrast moving through. His labs are unremarkable except for a mildly elevated BUN at 22. A General Surgery consultation has been requested. Review of Systems Constitutional: Denies chills, Denies fever(s) Eyes: Denies blurry vision Ears, Nose, Mouth, and Throat: Denies headache(s) Cardiovascular: Denies chest pain, Denies chest pain at rest, Denies chest pain with activity Gastrointestinal: Reports abdominal pain, Reports nausea, Reports vomiting Genitourinary: Denies urinary incontinence, Denies urinary urgency Musculoskeletal: Denies muscle weakness Skin/Breast: Denies rash Neurologic: Denies abnormal hearing Psychiatric: Denies anxiety, Denies depression Endocrine: Denies cold intolerance, Denies heat intolerance Hematologic/Lymphatic: Denies easy bleeding Allergic/Immunologic: Denies GI upset with certain foods PMFSH - History History Provided By: Patient - Medical History Medical History: Medical History (Last Reviewed 05/24/18 @ 18:44 by Phillip Soler MD) COPD (chronic obstructive pulmonary disease) Enlarged prostate Heart attack High cholesterol Hypertension Bowel obstruction GERD (gastroesophageal reflux disease) - Surgical History Surgical History: Surgical History (Last Reviewed 05/24/18 @ 18:44 by Phillip Soler MD) H/O coronary artery bypass surgery History of cardiac cath History of appendectomy Hx of tonsillectomy - Tobacco History Second Hand Smoke Exposure: Yes Smoking Status: Never smoker - Alcohol History How Often Do You Have a Drink Containing Alcohol: Monthly or less - Substance Use History Substance History: No History of Abuse - Travel History Recent Travel in the [place] Within the Last 8 Weeks: No Recent Travel Out of the Country Within the Last 8 Weeks: No - Immunization History Tetanus Immunization: <5 Years Hx Influenza Vaccine This Season: No Medications and Allergies Allergies Allergy/AdvReac Type Severity Reaction Status Date / Time No Known Allergies Allergy Unverified 05/23/18 21:53 Home Medications Medication Instructions Recorded Confirmed Type metoprolol tartrate 25 mg PO BID 05/23/18 05/23/18 History omeprazole 20 mg PO DAILY 05/23/18 05/23/18 History simvastatin 10 mg PO QPM 05/23/18 05/23/18 History tamsulosin 0.4 mg PO DAILY 05/23/18 05/23/18 History Active Medications: Active Medications Al Hydroxide/Mg Hydroxide (Milk Of Magnesia Liq) 30 ml PO Q12H PRN PRN Reason: Mild Constipation Bisacodyl (Dulcolax Supp) 10 mg RECTAL DAILY PRN PRN Reason: SEVERE CONSITIPATION Sodium Chloride (Ns Inj) 1,000 mls @ 100 mls/hr IV.CONT .Q10H [facility] Last Admin: 05/24/18 02:22 Dose: 100 mls/hr Lactulose (Lactulose Liq) 30 ml PO DAILY PRN PRN Reason: SEVERE CONSITIPATION Morphine Sulfate (Morphine Inj) 1 mg IV.PUSH Q4H PRN PRN Reason: PAIN 3-5 Morphine Sulfate (Morphine Inj) 2 mg IV.PUSH Q4H PRN PRN Reason: PAIN 6-10 Ondansetron HCl (Zofran Inj) 4 mg IV.PUSH Q6H PRN PRN Reason: NAUSEA OR VOMITING Senna/Docusate Sodium (Pratibha-Colace) 1 tab PO BID [facility] Last Admin: 05/24/18 09:07 Dose: 1 tab Sennosides (Senokot) 17.2 mg PO Q12H PRN PRN Reason: Moderate Constipation Sodium Chloride (Ns Flush) 2 ml IV.FLUSH PRN PRN PRN Reason: FLUSH AFTER USING IV ACCESS Exam Vital signs: Vital Signs 05/23/18 21:53 05/23/18 21:58 05/23/18 22:45 Temperature 98 F Pulse Rate 68 71 Respiratory Rate 16 18 Blood Pressure 130/61 177/71 H Pulse Oximetry 97 97 97 05/23/18 23:02 05/24/18 03:00 05/24/18 05:42 Temperature 98.1 F Pulse Rate 66 63 Respiratory Rate 18 18 Blood Pressure 164/77 H 166/72 H Pulse Oximetry 96 93 L 05/24/18 06:56 05/24/18 08:00 Temperature 97.5 F L Pulse Rate 62 56 L Respiratory Rate 18 12 Blood Pressure 124/60 142/67 H Pulse Oximetry 95 95 Intake & Output 05/23/18 05/24/18 05/24/18 18:59 06:59 18:59 Intake Total 500 / 500 Balance 500 / 500 Weight 74.843 kg Intake: IV 500 / 500 NS Inj 500 ML @ Wide Open IV. 500 / 500 SIG BOLUS ONE Rx#:[id number] Narrative: GENERAL: Pleasant 77 year old male resting in bed in no acute distress. SKIN: Warm and dry. HEAD: Atraumatic. Normocephalic. EYES: Pupils equal and round. No scleral icterus. No injection or drainage. ENT: No nasal bleeding or discharge. Mucous membranes pink and moist. NECK: Trachea midline. CARDIOVASCULAR: Regular rate and rhythm. Well healed sternal incision. RESPIRATORY: No accessory muscle use. Clear to auscultation. Breath sounds equal bilaterally. GASTROINTESTINAL: Abdomen soft, nondistended. Mild epigastric tenderness to palpation. Well healed midline incision. MUSCULOSKELETAL: Extremities without clubbing, cyanosis, or edema. No obvious deformities. NEUROLOGICAL: Awake and alert. No obvious cranial nerve deficits. Motor grossly within normal limits. Five out of 5 muscle strength in the arms and legs. Normal speech. PSYCHIATRIC: Appropriate mood and affect; insight and judgment normal. Results - Labs 05/23/18 22:55 05/23/18 22:55 Laboratory Results WBC 5.4 th/mm3 (4.0-11.0) 05/23/18 22:55 RBC 4.78 mil/mm3 (4.50-5.90) 05/23/18 22:55 Hgb 15.2 gm/dL (13.0-17.0) 05/23/18 22:55 Hct 43.2 % (39.0-51.0) 05/23/18 22:55 MCV 90.4 fL (80.0-100.0) 05/23/18 22:55 MCH 31.8 pg (27.0-34.0) 05/23/18 22:55 MCHC 35.2 % (32.0-36.0) 05/23/18 22: RDW 13.0 % (11.6-17.2) 05/23/18 22: Plt Count 180 th/mm3 (150-450) 05/23/18 22:55 MPV 9.8 fL (7.0-11.0) 05/23/18 22: Neut % (Auto) 77.5 % (16.0-70.0) H 05/23/18 22:55 Lymph % (Auto) 12.2 % (9.0-44.0) 05/23/18 22: [place] % (Auto) 9.8 % (0.0-8.0) H 05/23/18: Eos % (Auto) 0.3 % (0.0-4.0) 05/23/18: Baso % (Auto) 0.2 % (0.0-2.0) 05/23/18: Neut # (Auto) 4.2 th/mm3 (1.8-7.7) 05/23/18 22: Lymph # (Auto) 0.7 th/mm3 (1.0-4.8) L 05/23/18 22: [place] # (Auto) 0.5 th/mm3 (0.0-0.9) 05/23/18 22: Eos # (Auto) 0.0 th/mm3 (0.0-0.4) 05/23/18: Baso # (Auto) 0.0 th/mm3 (0.0-0.2) 05/23/18 22:55 WBC Differential . 05/23/18: Differential Comment Auto diff final 05/23/18: PT 10.4 sec (9.8-11.6) 05/23/18: INR 1.0 Ratio 05/23/18: APTT 23.8 sec (24.3-30.1) L 05/23/18 22:55 Sodium 136 meq/L (136-145) 05/23/18 22: Potassium 3.5 meq/L (3.5-5.1) 05/23/18:55 Chloride 94 meq/L (98-107) L 05/23/18 22:55 Carbon Dioxide 30.4 meq/L (21.0-32.0) 05/23/18 22:55 Anion Gap 12 meq/L (5-15) 05/23/18 22:55 BUN 22 mg/dL (7-18) H 05/23/18 22:55 Creatinine 1.10 mg/dL (0.60-1.30) 05/23/18 22:55 Estimated GFR 65 mL/min (>89) L 05/23/18 22:55 Random Glucose 137 mg/dL (74-106) H 05/23/18 22:55 Lactic Acid 1.5 mmol/L (0.4-2.0) 05/23/18 22:55 Calcium 9.1 mg/dL (8.5-10.1) 05/23/18 22:55 Total Bilirubin 0.6 mg/dL (0.2-1.0) 05/23/18 22:55 AST 20 U/L (15-37) 05/23/18 22:55 ALT 20 U/L (12-78) 05/23/18 22:55 Alkaline Phosphatase 72 U/L (45-117) 05/23/18 22:55 Total Creatine Kinase 161 U/L (39-308) 05/23/18 22:55 CK-MB (CK-2) Less than 1.0 ng/mL (0.5-3.6) 05/23/18 22:55 Troponin I Less than 0.02 ng/mL (0.02-0.05) L 05/23/18 22:55 Total Protein 8.0 g/dL (6.4-8.2) 05/23/18 22:55 Albumin 3.7 g/dL (3.4-5.0) 05/23/18 22:55 Lipase 174 U/L (73-393) 05/23/18 22:55 Urine Color Yellow (Yellw/Straw) 05/24/18 05:23 Urine Clarity Hazy (Clear) H 05/24/18 05:23 Urine pH 5.0 (5.0-8.5) 05/24/18 05:23 Ur Specific [place] 1.013 (1.002-1.035) 05/24/18 05:23 Urine Protein Negative mg/dL (Neg-Trace) 05/24/18 05:23 Urine Glucose (UA) Negative mg/dL (Negative) 05/24/18 05:23 Urine Ketones Trace mg/dL (Negative) 05/24/18 05:23 Urine Occult Blood Small (Negative) H 05/24/18 05:23 Urine Nitrate Negative (Negative) 05/24/18 05:23 Urine Bilirubin Negative (Negative) 05/24/18 05:23 Urine Urobilinogen Less than 2 mg/dL (Less than 2) 05/24/18 05:23 Ur Leukocyte Esterase Negative (Negative) 05/24/18 05:23 Urine RBC 1 /hpf (0-3) 05/24/18 05:23 Urine WBC 2 /hpf (0-5) 05/24/18 05:23 Ur Squamous Epith Cells <1 /hpf (0-5) 05/24/18 05:23 Urine Mucus Moderate /lpf (Occasional) H 05/24/18 05:23 Micro UA Comment Culture not ind 05/24/18 05:23 Ur Microscopic Review Not Reportable 05/24/18 05:23 Urine Culture Comments Culture not ind 05/24/18 05:23 Impressions Chest X-Ray 05/23/18 22:38 CONCLUSION: No acute cardiopulmonary disease demonstrated. Abdomen/Pelvis CT 05/24/18 00:00 CONCLUSION: Study limited by metallic streak artifact from barium within the colon. There is evidence of acute small bowel obstruction, probably at the level of the proximal ileum and presumably related to adhesion. No perceptible mass. ITS Impressions Chest X-Ray 05/23/18 22:38 CONCLUSION: No acute cardiopulmonary disease demonstrated. Abdomen X-Ray 05/24/18 00:00 CONCLUSION: 1. Persistent abnormally dilated small bowel although less distended than present on the a prior CT from approximately 12 hours ago. Consider additional follow-up imaging to confirm resolution of this abnormality. 2. Sigmoid diverticulosis. Abdomen/Pelvis CT 05/24/18 00:00 CONCLUSION: Study limited by metallic streak artifact from barium within the colon. There is evidence of acute small bowel obstruction, probably at the level of the proximal ileum and presumably related to adhesion. No perceptible mass. - Imaging Abdominal x-ray: report reviewed, image reviewed CT scan - abdomen: report reviewed, image reviewed Assessment and Plan - Assessment (1) SBO (small bowel obstruction) Code(s): K56.609 - Unspecified intestinal obstruction, unspecified as to partial versus complete obstruction Status: Acute Plan: 77 year old male with recurrent SBO -KUB this AM shows contrast moving through -Recommend IVF due to mild dehydration -Will start full liquid diet and advance as tolerated -Mag citrate x 1 dose today -Will attempt non surgical management as the patient does have contrast moving though on his CT scan and KUB -Thank you for this consult; We will continue to follow - Plan Discussed Condition With: Dr. Soler Mr. Dudley + son and daughter in law (Aida who is an RN) at the bedside - Attending Attestation NOTE FOR SURGICAL ATTENDING, DR. PHILLIP SOLER I agree with above assessment and plan. KUB reviewed as well as CT scan Patient seen in the emergency room Ambulating around We will treat patient nonoperatively as there is contrast filling his colon from his recent small bowel follow-through He adds that he has a fair amount of diarrhea which is not consistent with small bowel obstruction The exam, history, and the medical decision-making described in the above note were completed with the assistance of the mid-level provider. I reviewed and agree with the findings presented. I attest that I had a [id number] encounter with the patient on the same day, and personally performed and documented my assessment and findings in the medical record. The following services were provided during this hospital visit: Chart data review, vital sign assessments/reviewing monitor data Review of consultations notes if present. Medication orders/review and/or management Ordering and/or reviewing lab tests Ordering and/or interpreting/reviewing x-rays and/or diagnostic studies Care of the patient and discussion of the patient with the care team Documentation time To help prompt me to consider important information that might be impacting today's encounter and assessment, Information from prior notes written by myself or my colleagues may have been "brought forward/copy and pasted" into today's note.
--- NOTE | 2018-05-24 11:54 | P.PNIM ---
Subjective Interval history: This is a 77-year-old male with a PMH of HTN, Hyperlipidemia, COPD and h/o SBO who presented to the ER w/ complaints of abdominal pain x3 days. Reports pain is intermittent, moderate-severe, 8/10, non-radiating, associated w/ nausea/ vomiting. Denies fever. On arrival, BP 130/61, HR 68, O2 sat 97% on RA, Afebrile. CBC essentially unremarkable. INR 1.0. Chemistry unremarkable except for GFR 65, BUN 22. CXR with no acute findings. CT Abdomen/Pelvis with acute small bowel obstruction, probably at the level of proximal ileum presumably related to adhesion, no mass. 8 LESS ABDOMINAL PAIN SEEN BY GENERAL SURGERY CONTINUE ON FLUIDS HAD XRAYS TODAY DW RN AND PT AND CM Had x-ray today results are pending Physical Exam Vital signs: Vital Signs 05/23/18 21:53 05/23/18 21:58 05/23/18 22:45 Temperature 98 F Pulse Rate 68 71 Respiratory Rate 16 18 Blood Pressure 130/61 177/71 H Pulse Oximetry 97 97 97 05/23/18 23:02 05/24/18 03:00 05/24/18 05:42 Temperature 98.1 F Pulse Rate 66 63 Respiratory Rate 18 18 Blood Pressure 164/77 H 166/72 H Pulse Oximetry 96 93 L 05/24/18 06:56 05/24/18 08:00 Temperature 97.5 F L Pulse Rate 62 56 L Respiratory Rate 18 12 Blood Pressure 124/60 142/67 H Pulse Oximetry 95 95 Intake & Output 05/23/18 05/24/18 05/24/18 18:59 06:59 18:59 Intake Total 500 / 500 Balance 500 / 500 Weight 74.843 kg Intake: IV 500 / 500 NS Inj 500 ML @ Wide Open IV. 500 / 500 SIG BOLUS ONE Rx#:[id number] Narrative: GENERAL: Awake alert and oriented 3 talkative and cooperative-- has a heavy [place] accent SKIN: Warm and dry. HEAD: Atraumatic. Normocephalic. EYES: Pupils equal and round. No scleral icterus. No injection or drainage. EOMI ENT: No nasal bleeding or discharge. Mucous membranes pink and moist. Tongue is midline NECK: Trachea midline. No JVD. Supple CARDIOVASCULAR: Regular rate and rhythm. S1-S2 no S3 or S4 no heave or thrill or rub or gallop RESPIRATORY: No accessory muscle use. Clear to auscultation. Breath sounds equal bilaterally. GASTROINTESTINAL: Abdomen soft, non-tender, nondistended. Hepatic and splenic margins not palpable. MUSCULOSKELETAL: Extremities without clubbing, cyanosis, or edema. No obvious deformities. NEUROLOGICAL: Awake and alert. No obvious cranial nerve deficits. Motor grossly within normal limits. Five out of 5 muscle strength in the arms and legs. Normal speech. PSYCHIATRIC: Appropriate mood and affect; insight and judgment normal. Results - Labs CBC & Chem 7: 05/23/18 22:55 05/23/18 22:55 Laboratory Results - last 24 hr 05/23/18 05/23/18 05/23/18 22:55 22:55 22:55 WBC 5.4 RBC 4.78 Hgb 15.2 Hct 43.2 MCV 90.4 MCH 31.8 MCHC 35.2 RDW 13.0 Plt Count 180 MPV 9.8 Neut % (Auto) 77.5 H Lymph % (Auto) 12.2 [place] % (Auto) 9.8 H Eos % (Auto) 0.3 Baso % (Auto) 0.2 Neut # (Auto) 4.2 Lymph # (Auto) 0.7 L [place] # (Auto) 0.5 Eos # (Auto) 0.0 Baso # (Auto) 0.0 WBC Differential . Differential Comment Auto diff final PT 10.4 INR 1.0 APTT 23.8 L Sodium 136 Potassium 3.5 Chloride 94 L Carbon Dioxide 30.4 Anion Gap 12 BUN 22 H Creatinine 1.10 Estimated GFR 65 L Random Glucose 137 H Lactic Acid Calcium 9.1 Total Bilirubin 0.6 AST 20 ALT 20 Alkaline Phosphatase 72 Total Creatine Kinase 161 CK-MB (CK-2) Less than 1.0 Troponin I Less than 0.02 L Total Protein 8.0 Albumin 3.7 Lipase 174 Urine Color Urine Clarity Urine pH Ur Specific [place] Urine Protein Urine Glucose (UA) Urine Ketones Urine Occult Blood Urine Nitrate Urine Bilirubin Urine Urobilinogen Ur Leukocyte Esterase Urine RBC Urine WBC Ur Squamous Epith Cells Urine Mucus Micro UA Comment Ur Microscopic Review Urine Culture Comments 05/23/18 05/24/18 22:55 05:23 WBC RBC Hgb Hct MCV MCH MCHC RDW Plt Count MPV Neut % (Auto) Lymph % (Auto) [place] % (Auto) Eos % (Auto) Baso % (Auto) Neut # (Auto) Lymph # (Auto) [place] # (Auto) Eos # (Auto) Baso # (Auto) WBC Differential Differential Comment PT INR APTT Sodium Potassium Chloride Carbon Dioxide Anion Gap BUN Creatinine Estimated GFR Random Glucose Lactic Acid 1.5 Calcium Total Bilirubin AST ALT Alkaline Phosphatase Total Creatine Kinase CK-MB (CK-2) Troponin I Total Protein Albumin Lipase Urine Color Yellow Urine Clarity Hazy H Urine pH 5.0 Ur Specific [place] 1.013 Urine Protein Negative Urine Glucose (UA) Negative Urine Ketones Trace Urine Occult Blood Small H Urine Nitrate Negative Urine Bilirubin Negative Urine Urobilinogen Less than 2 Ur Leukocyte Esterase Negative Urine RBC 1 Urine WBC 2 Ur Squamous Epith Cells <1 Urine Mucus Moderate H Micro UA Comment Culture not ind Ur Microscopic Review Not Reportable Urine Culture Comments Culture not ind - Imaging Impressions Chest X-Ray 05/23/18 22:38 CONCLUSION: No acute cardiopulmonary disease demonstrated. Abdomen/Pelvis CT 05/24/18 00:00 CONCLUSION: Study limited by metallic streak artifact from barium within the colon. There is evidence of acute small bowel obstruction, probably at the level of the proximal ileum and presumably related to adhesion. No perceptible mass. - Procedures None Assessment and Plan - Assessment (1) SBO (small bowel obstruction) Code(s): K56.609 - Unspecified intestinal obstruction, unspecified as to partial versus complete obstruction Status: Acute (2) Dehydration Code(s): E86.0 - Dehydration Status: Acute - Plan 1. SBO: Recurrent. H/o SBO secondary to adhesions requiring surgical intervention in the past, now w/ abdominal pain, nausea/vomiting. CT Abd/ Pelvis w/ acute obstruction in prox ileum due to adhesions, no mass, images reviewed. NPO, NGT, IVF, analgesics/antiemetics as needed, Consult Gen Sx for further eval 2. Dehydration: BUN 22, GFR 65, IVF for hydration, repeat labs in am, monitor I/O continue IV fluids GERD continue PPI Hypertension continue on metoprolol Hyperlipidemia continue on simvastatin BPH continue on Flomax 3. DVT Prophylaxis: SCD/teds. A.m. labs Code Status: Full code Discussed Condition With: RN and patient and case management Discharge Planning: Pending improvement and clearance by surgery
--- NOTE | 2018-05-24 12:26 | XR ---
EXAM DATE: 05/24/2018 11:41 AM EDT AGE/SEX: 77 years / Male INDICATIONS: Constipation, possible small bowel obstruction CLINICAL DATA: This is the patient's initial encounter. Patient reports that signs and symptoms have been present for 2 days and indicates a pain score of 0/10. MEDICAL/SURGICAL HISTORY: . hx of small bowel obstructions Appendectomy. 2 surgeries for small bowel obstructions, recent small bowel test at [facility] outpatient clinic [place] [facility] [place] CONTRAST, 05/24/2018. . FINDINGS: 2 supine frontal views of the abdomen demonstrate dense oral contrast throughout the colon and rectu m. Sigmoid diverticulosis is present. There is persistent abnormally dilated small bowel measuring up to approximately 5 cm. 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 No organomegaly is present. There are cholecystectomy clips. Degenerative changes are present through out the visualized thoracic and lumbar spine. Lung bases are clear. There is calcification within the common femoral arteries bilaterally. CONCLUSION: 1. Persistent abnormally dilated small bowel although less distended than present on the a prior CT from approximately 12 hours ago. Consider additional follow-up imaging to confirm resolution of this abnormality. 2. Sigmoid diverticulosis. Electronically signed by: Lukasz Reyez MD 05/24/2018 12:24 PM EDT
[2018-05-24] MEDS: Metoprolol Tartrate 25 MG Tablet PO SCH ×2 (13:12→21:38)
--- NOTE | 2018-05-24 13:25 | ECG ---
Date Performed: 05/23/2018 Time Performed: 22:51:04 PTAGE: 77 years EKG: Sinus rhythm WITH OCCASIONAL SUPRAVENTRICULAR PREMATURE COMPLEXES OLD INFERIOR MYOCARDIAL INFARCTION ABNORMAL ECG Since the PREVIOUS TRACING , no significant change noted DOCTOR: Migue Fish Interpretating Date/Time 05/24/2018 13:23:03
[2018-05-24] MEDS ORDERED: Magnesium Citrate Liq 300 ML Bottle PO ONE (14:00)
[2018-05-24] MEDS: Pantoprazole Sodium 20 MG DR Tablet PO SCH (14:02)
[2018-05-24 14:51] LABS: Free T4 (Free Thyroxine) 1.53 ng/dL (0.76-1.46); Thyroid Stimulating Hormone 0.593 uIU/mL (0.358-3.740)
[2018-05-24 17:18] LABS: Hemoglobin A1c 5.5 % (4.3-6.0)
[2018-05-25] MEDS: Sod Chloride 0.9% Inj 1,000 ML IV.CONT SCH ×2 (00:51→08:01)
[2018-05-25 06:26] LABS: Baso % (Auto) 0.6 % (0.0-2.0); Eos # (Auto) 0.1 th/mm3 (0.0-0.4); Eos % (Auto) 2.2 % (0.0-4.0); Hematocrit 37.9 % (39.0-51.0); Hemoglobin 13.5 gm/dL (13.0-17.0); Lymph # (Auto) 1.3 th/mm3 (1.0-4.8); Lymph % (Auto) 27.1 % (9.0-44.0); Mean Corpuscular HGB Conc 35.7 % (32.0-36.0); Mean Corpuscular Hemoglobin 31.8 pg (27.0-34.0); Mean Corpuscular Volume 89.1 fL (80.0-100.0); Mean Platelet Volume 9.4 fL (7.0-11.0); Mono # (Auto) 0.5 th/mm3 (0.0-0.9); Mono % (Auto) 10.1 % (0.0-8.0); Neut # (Auto) 2.8 th/mm3 (1.8-7.7); Platelet Count 147 th/mm3 (150-450); Red Blood Count 4.25 mil/mm3 (4.50-5.90); Red Cell Distribution Width 13.2 % (11.6-17.2); White Blood Count 4.7 th/mm3 (4.0-11.0)
[2018-05-25 06:48] LABS: Alanine Aminotransferase 19 U/L (12-78); Albumin 2.9 g/dL (3.4-5.0); Alkaline Phosphatase 59 U/L (45-117); Anion Gap 10 meq/L (5-15); Aspartate Aminotransferase 23 U/L (15-37); Blood Urea Nitrogen 14 mg/dL (7-18); Calcium 8.1 mg/dL (8.5-10.1); Carbon Dioxide 26.4 meq/L (21.0-32.0); Chloride 105 meq/L (98-107); Glomerular Filtration Rate Greater Than 89 mL/min (>89); Glucose,Random 73 mg/dL (74-106); Magnesium 2.4 mg/dL (1.5-2.5); Phosphorus 2.8 mg/dL (2.5-4.9); Potassium 3.1 meq/L (3.5-5.1); Sodium 141 meq/L (136-145); Total Protein 6.1 g/dL (6.4-8.2)
[2018-05-25] MEDS: Metoprolol Tartrate 25 MG Tablet PO SCH (08:00)
[2018-05-25] MEDS: Pantoprazole Sodium 20 MG DR Tablet PO SCH (08:00)
[2018-05-25] MEDS: Senna/Docusate Sodium 8.6/50 MG Tablet PO SCH (08:00)
[2018-05-25] MEDS ORDERED: Potassium Chlor 20 mEq Premix 20 MEQ/100 ML PIGGYBACK IV.SIG SCH (08:30)
--- NOTE | 2018-05-25 08:43 | P.PNGS ---
Subjective Patient reports: no new complaints, feels better, tolerating liquids well, flatus, bowel movement (x4) Interval history: DAILY PROGRESS NOTE FOR SURGICAL ATTENDING, DR. CARO SOLER Physical Exam Vital signs: Vital Signs 05/24/18 12:00 05/24/18 16:00 05/24/18 21:36 Temperature 97.6 F 97.3 F L 97.7 F Pulse Rate 62 54 L 58 L Respiratory Rate 14 12 17 Blood Pressure 135/66 147/65 H 149/65 H Pulse Oximetry 95 97 98 05/25/18 04:22 Temperature Pulse Rate 64 Respiratory Rate 16 Blood Pressure 135/64 Pulse Oximetry 97 Intake & Output 05/24/18 05/25/18 05/25/18 18:59 06:59 18:59 Intake Total 0 / 0 1000 / 1000 1000 / 1000 Balance 0 / 0 1000 / 1000 1000 / 1000 Intake: IV 0 / 0 1000 / 1000 1000 / 1000 NS Inj 1,000 ML @ 100 mls/hr IV 0 / 0 1000 / 1000 1000 / 1000 .CONT .Q10H [facility] Rx#:[id number] Other: # Voids 4 Date of Last Bowel Movement 05/24/18 # Bowel Movements 4 - Constitutional no acute distress - Routine HEENT Exam Head: Present: normocephalic - Routine Respiratory Exam Present: CTA bilaterally - Routine Abdominal Exam Present: soft (no pain), surgical scars - Routine Extremities Exam Present: normal capillary refill - Routine Neurological Exam Present: alert, oriented X3 - Detailed Neurological Exam: Coma Scale Eye Opening: Spontaneous Verbal Response: Oriented Motor Response: Obey commands Khoa Coma Scale Total: 15 - Routine Psychiatric Exam Present: normal affect Assessment and Plan - Assessment (1) SBO (small bowel obstruction) Code(s): K56.609 - Unspecified intestinal obstruction, unspecified as to partial versus complete obstruction Status: Resolved Plan: 77 year old male with recurrent SBO He had felt before bowel movements yesterday Abdominal pain resolved Abdomen soft this morning Advance diet Cleared for discharge per general surgery Will sign off - Attending Attestation NOTE FOR SURGICAL ATTENDING, DR. CARO SOLER I attest that I had a [id number] encounter with the patient on the same day, and personally performed and documented my assessment and findings in the medical record. The following services were provided during this hospital visit: Chart data review, vital sign assessments/reviewing monitor data Review of consultations notes if present. Medication orders/review and/or management Ordering and/or reviewing lab tests Ordering and/or interpreting/reviewing x-rays and/or diagnostic studies Care of the patient and discussion of the patient with the care team Documentation time To help prompt me to consider important information that might be impacting today's encounter and assessment, Information from prior notes written by myself or my colleagues may have been "brought forward/copy and pasted" into today's note.
[2018-05-25] MEDS: Potassium Chlor 10 mEq Premix 10 MEQ/100 ML PIGGYBACK IV.SIG SCH ×4 (10:19→13:41)
--- NOTE | 2018-05-25 12:17 | P.PNIM ---
Subjective Interval history: This is a 77-year-old male with a PMH of HTN, Hyperlipidemia, COPD and h/o SBO who presented to the ER w/ complaints of abdominal pain x3 days. Reports pain is intermittent, moderate-severe, 8/10, non-radiating, associated w/ nausea/ vomiting. Denies fever. On arrival, BP 130/61, HR 68, O2 sat 97% on RA, Afebrile. CBC essentially unremarkable. INR 1.0. Chemistry unremarkable except for GFR 65, BUN 22. CXR with no acute findings. CT Abdomen/Pelvis with acute small bowel obstruction, probably at the level of proximal ileum presumably related to adhesion, no mass. 05-24 LESS ABDOMINAL PAIN SEEN BY GENERAL SURGERY CONTINUE ON FLUIDS HAD XRAYS TODAY DW RN AND PT AND CM Had x-ray today results are pending 05-24 PATIENT TOLERATING A DIET HAD BMS CLEARED BY SURGERY DC TO HOME TODAY SEE RN AND IRAJ HYPOKALEMIA WILL REPLACE DC TO HOME TODAY DW RN AND PT AND CM Physical Exam Vital signs: Vital Signs 05/24/18 16:00 05/24/18 21:36 05/25/18 04:22 Temperature 97.3 F L 97.7 F Pulse Rate 54 L 58 L 64 Respiratory Rate 12 17 16 Blood Pressure 147/65 H 149/65 H 135/64 Pulse Oximetry 97 98 97 05/25/18 08:00 Temperature 97.6 F Pulse Rate 67 Respiratory Rate 16 Blood Pressure 128/59 L Pulse Oximetry 97 Intake & Output 05/24/18 05/25/18 05/25/18 18:59 06:59 18:59 Intake Total 0 / 0 1000 / 1000 1100 / 1100 Balance 0 / 0 1000 / 1000 1100 / 1100 Intake: IV 0 / 0 1000 / 1000 1100 / 1100 NS Inj 1,000 ML @ 100 mls/hr IV 0 / 0 1000 / 1000 1000 / 1000 .CONT .Q10H MELISSA Rx#:[id number] KCl 10 mEq Premix Inj 10 meq In 100 / 100 100 ml @ 100 mls/hr IV.SIG Q1H MELISSA Rx#:[id number] Other: # Voids 4 Date of Last Bowel Movement 05/24/18 # Bowel Movements 4 Narrative: GENERAL: Awake alert and oriented 3 talkative and cooperative-- has a heavy [place] accent SKIN: Warm and dry. HEAD: Atraumatic. Normocephalic. EYES: Pupils equal and round. No scleral icterus. No injection or drainage. EOMI ENT: No nasal bleeding or discharge. Mucous membranes pink and moist. Tongue is midline NECK: Trachea midline. No JVD. Supple CARDIOVASCULAR: Regular rate and rhythm. S1-S2 no S3 or S4 no heave or thrill or rub or gallop RESPIRATORY: No accessory muscle use. Clear to auscultation. Breath sounds equal bilaterally. GASTROINTESTINAL: Abdomen soft, non-tender, nondistended. Hepatic and splenic margins not palpable. MUSCULOSKELETAL: Extremities without clubbing, cyanosis, or edema. No obvious deformities. NEUROLOGICAL: Awake and alert. No obvious cranial nerve deficits. Motor grossly within normal limits. Five out of 5 muscle strength in the arms and legs. Normal speech. PSYCHIATRIC: Appropriate mood and affect; insight and judgment normal. Results - Labs CBC & Chem 7: 05/25/18 05:33 05/25/18 05:33 Laboratory Results - last 24 hr 05/24/18 05/24/18 05/24/18 13:42 13:42 13:42 WBC RBC Hgb Hct MCV MCH MCHC RDW Plt Count MPV Neut % (Auto) Lymph % (Auto) Buchanan % (Auto) Eos % (Auto) Baso % (Auto) Neut # (Auto) Lymph # (Auto) Buchanan # (Auto) Eos # (Auto) Baso # (Auto) WBC Differential Differential Comment Sodium Potassium Chloride Carbon Dioxide Anion Gap BUN Creatinine Estimated GFR Random Glucose Hemoglobin A1c 5.5 Calcium Phosphorus Magnesium Total Bilirubin AST ALT Alkaline Phosphatase Total Protein Albumin TSH 0.593 Cancelled Free T4 1.53 H 05/25/18 05/25/18 05:33 05:33 WBC 4.7 RBC 4.25 L Hgb 13.5 Hct 37.9 L MCV 89.1 MCH 31.8 MCHC 35.7 RDW 13.2 Plt Count 147 L MPV 9.4 Neut % (Auto) 60.0 Lymph % (Auto) 27.1 Buchanan % (Auto) 10.1 H Eos % (Auto) 2.2 Baso % (Auto) 0.6 Neut # (Auto) 2.8 Lymph # (Auto) 1.3 Buchanan # (Auto) 0.5 Eos # (Auto) 0.1 Baso # (Auto) 0.0 WBC Differential . Differential Comment Auto diff final Sodium 141 Potassium 3.1 L Chloride 105 D Carbon Dioxide 26.4 Anion Gap 10 BUN 14 Creatinine 0.80 Estimated GFR Greater than 89 Random Glucose 73 L Hemoglobin A1c Calcium 8.1 L D Phosphorus 2.8 Magnesium 2.4 Total Bilirubin 0.4 AST 23 ALT 19 Alkaline Phosphatase 59 Total Protein 6.1 L D Albumin 2.9 L D TSH Free T4 - Imaging Impressions Abdomen X-Ray 05/24/18 00:00 CONCLUSION: 1. Persistent abnormally dilated small bowel although less distended than present on the a prior CT from approximately 12 hours ago. Consider additional follow-up imaging to confirm resolution of this abnormality. 2. Sigmoid diverticulosis. - Procedures None Assessment and Plan - Assessment (1) SBO (small bowel obstruction) Code(s): K56.609 - Unspecified intestinal obstruction, unspecified as to partial versus complete obstruction Status: Resolved (2) Dehydration Code(s): E86.0 - Dehydration Status: Acute - Plan 1. SBO: Recurrent. H/o SBO secondary to adhesions requiring surgical intervention in the past, now w/ abdominal pain, nausea/vomiting. CT Abd/ Pelvis w/ acute obstruction in prox ileum due to adhesions, no mass, images reviewed. NPO, NGT, IVF, analgesics/antiemetics as needed, Consult Gen Sx for further eval 2. Dehydration: BUN 22, GFR 65, IVF for hydration, repeat labs in am, monitor I/O continue IV fluids GERD continue PPI Hypertension continue on metoprolol Hyperlipidemia continue on simvastatin BPH continue on Flomax 3. DVT Prophylaxis: SCD/teds. Patient has been cleared by general surgery can be discharged to home today Follow-up with PCP Diet as tolerated Heart healthy diet DC to home today discussed with RN and patient and case Code Status: FULL CODE Discussed Condition With: RN AND PT AND CM Discharge Planning: DC TO HOME TODAY
--- NOTE | 2018-05-25 12:24 | P.DS ---
Date of admission: 05/24/18 02:15 Primary care physician: [facility] Attending physician on discharge: Presley Nagel Anticipated date of discharge: 05/25/18 Brief History from admission: This is a 77-year-old male with a PMH of HTN, Hyperlipidemia, COPD and h/o SBO who presented to the ER w/ complaints of abdominal pain x3 days. Reports pain is intermittent, moderate-severe, 8/10, non-radiating, associated w/ nausea/ vomiting. Denies fever. On arrival, BP 130/61, HR 68, O2 sat 97% on RA, Afebrile. CBC essentially unremarkable. INR 1.0. Chemistry unremarkable except for GFR 65, BUN 22. CXR with no acute findings. CT Abdomen/Pelvis with acute small bowel obstruction, probably at the level of proximal ileum presumably related to adhesion, no mass. DS: Diagnosis - Discharge Diagnosis (1) SBO (small bowel obstruction) Status: Resolved (2) Dehydration Status: Resolved DS: Medications - Discharge Medications Prescriptions: sennosides-docusate sodium [Senna Plus] 1 tab PO BID #120 tab DS: Summary Hospital Course: This is a 77-year-old male with a PMH of HTN, Hyperlipidemia, COPD and h/o SBO who presented to the ER w/ complaints of abdominal pain x3 days. Reports pain is intermittent, moderate-severe, 8/10, non-radiating, associated w/ nausea/ vomiting. Denies fever. On arrival, BP 130/61, HR 68, O2 sat 97% on RA, Afebrile. CBC essentially unremarkable. INR 1.0. Chemistry unremarkable except for GFR 65, BUN 22. CXR with no acute findings. CT Abdomen/Pelvis with acute small bowel obstruction, probably at the level of proximal ileum presumably related to adhesion, no mass. 05-24 LESS ABDOMINAL PAIN SEEN BY GENERAL SURGERY CONTINUE ON FLUIDS HAD XRAYS TODAY DW RN AND PT AND CM Had x-ray today results are pending 05-24 PATIENT TOLERATING A DIET HAD BMS CLEARED BY SURGERY DC TO HOME TODAY SEE RN AND MEDS HYPOKALEMIA WILL REPLACE DC TO HOME TODAY DW RN AND PT AND CM - Time Spent with Patient Total time spent providing and/or coordinating discharge services: Less than 30 minutes - Quality: VTE Deep Vein Thrombosis/Pulmonary Embolism Present on Admission: No Exam Vital signs: Vital Signs 05/24/18 16:00 05/24/18 21:36 05/25/18 04:22 Temperature 97.3 F L 97.7 F Pulse Rate 54 L 58 L 64 Respiratory Rate 12 17 16 Blood Pressure 147/65 H 149/65 H 135/64 Pulse Oximetry 97 98 97 05/25/18 08:00 Temperature 97.6 F Pulse Rate 67 Respiratory Rate 16 Blood Pressure 128/59 L Pulse Oximetry 97 Intake & Output 05/24/18 05/25/18 05/25/18 18:59 06:59 18:59 Intake Total 0 / 0 1000 / 1000 1100 / 1100 Balance 0 / 0 1000 / 1000 1100 / 1100 Intake: IV 0 / 0 1000 / 1000 1100 / 1100 NS Inj 1,000 ML @ 100 mls/hr IV 0 / 0 1000 / 1000 1000 / 1000 .CONT .Q10H MELISSA Rx#:[id number] KCl 10 mEq Premix Inj 10 meq In 100 / 100 100 ml @ 100 mls/hr IV.SIG Q1H MELISSA Rx#:[id number] Other: # Voids 4 Date of Last Bowel Movement 05/24/18 # Bowel Movements 4 Narrative: GENERAL: Awake alert and oriented 3 talkative and cooperative-- has a heavy Persian accent SKIN: Warm and dry. HEAD: Atraumatic. Normocephalic. EYES: Pupils equal and round. No scleral icterus. No injection or drainage. EOMI ENT: No nasal bleeding or discharge. Mucous membranes pink and moist. Tongue is midline NECK: Trachea midline. No JVD. Supple CARDIOVASCULAR: Regular rate and rhythm. S1-S2 no S3 or S4 no heave or thrill or rub or gallop RESPIRATORY: No accessory muscle use. Clear to auscultation. Breath sounds equal bilaterally. GASTROINTESTINAL: Abdomen soft, non-tender, nondistended. Hepatic and splenic margins not palpable. MUSCULOSKELETAL: Extremities without clubbing, cyanosis, or edema. No obvious deformities. NEUROLOGICAL: Awake and alert. No obvious cranial nerve deficits. Motor grossly within normal limits. Five out of 5 muscle strength in the arms and legs. Normal speech. PSYCHIATRIC: Appropriate mood and affect; insight and judgment normal. Results Procedures completed during hospitalization: None Completed studies during hospitalization: Laboratory Results WBC 4.7 th/mm3 (4.0-11.0) 05/25/18 05:33 RBC 4.25 mil/mm3 (4.50-5.90) L 05/25/18 05:33 Hgb 13.5 gm/dL (13.0-17.0) 05/25/18 05:33 Hct 37.9 % (39.0-51.0) L 05/25/18 05:33 MCV 89.1 fL (80.0-100.0) 05/25/18 05:33 MCH 31.8 pg (27.0-34.0) 05/25/18 05:33 MCHC 35.7 % (32.0-36.0) 05/25/18 05:33 RDW 13.2 % (11.6-17.2) 05/25/18 05:33 Plt Count 147 th/mm3 (150-450) L 05/25/18 05:33 MPV 9.4 fL (7.0-11.0) 05/25/18 05:33 Neut % (Auto) 60.0 % (16.0-70.0) 05/25/18 05:33 Lymph % (Auto) 27.1 % (9.0-44.0) 05/25/18 05:33 Larue % (Auto) 10.1 % (0.0-8.0) H 05/25/18 05:33 Eos % (Auto) 2.2 % (0.0-4.0) 05/25/18 05:33 Baso % (Auto) 0.6 % (0.0-2.0) 05/25/18 05:33 Neut # (Auto) 2.8 th/mm3 (1.8-7.7) 05/25/18 05:33 Lymph # (Auto) 1.3 th/mm3 (1.0-4.8) 05/25/18 05:33 Larue # (Auto) 0.5 th/mm3 (0.0-0.9) 05/25/18 05:33 Eos # (Auto) 0.1 th/mm3 (0.0-0.4) 05/25/18 05:33 Baso # (Auto) 0.0 th/mm3 (0.0-0.2) 05/25/18 05:33 WBC Differential . 05/25/18 05:33 Differential Comment Auto diff final 05/25/18 05:33 PT 10.4 sec (9.8-11.6) 05/23/18 22:55 INR 1.0 Ratio 05/23/18 22:55 APTT 23.8 sec (24.3-30.1) L 05/23/18 22:55 Sodium 141 meq/L (136-145) 05/25/18 05:33 Potassium 3.1 meq/L (3.5-5.1) L 05/25/18 05:33 Chloride 105 meq/L (98-107) D 05/25/18 05:33 Carbon Dioxide 26.4 meq/L (21.0-32.0) 05/25/18 05:33 Anion Gap 10 meq/L (5-15) 05/25/18 05:33 BUN 14 mg/dL (7-18) 05/25/18 05:33 Creatinine 0.80 mg/dL (0.60-1.30) 05/25/18 05:33 Estimated GFR Greater than 89 mL/min (>89) 05/25/18 05:33 Random Glucose 73 mg/dL (74-106) L 05/25/18 05:33 Hemoglobin A1c 5.5 % (4.3-6.0) 05/24/18 13:42 Lactic Acid 1.5 mmol/L (0.4-2.0) 05/23/18 22:55 Calcium 8.1 mg/dL (8.5-10.1) L D 05/25/18 05:33 Phosphorus 2.8 mg/dL (2.5-4.9) 05/25/18 05:33 Magnesium 2.4 mg/dL (1.5-2.5) 05/25/18 05:33 Total Bilirubin 0.4 mg/dL (0.2-1.0) 05/25/18 05:33 AST 23 U/L (15-37) 05/25/18 05:33 ALT 19 U/L (12-78) 05/25/18 05:33 Alkaline Phosphatase 59 U/L (45-117) 05/25/18 05:33 Total Creatine Kinase 161 U/L (39-308) 05/23/18 22:55 CK-MB (CK-2) Less than 1.0 ng/mL (0.5-3.6) 05/23/18 22:55 Troponin I Less than 0.02 ng/mL (0.02-0.05) L 05/23/18 22:55 Total Protein 6.1 g/dL (6.4-8.2) L D 05/25/18 05:33 Albumin 2.9 g/dL (3.4-5.0) L D 05/25/18 05:33 Lipase 174 U/L (73-393) 05/23/18 22:55 TSH 0.593 uIU/mL (0.358-3.740) 05/24/18 13:42 Free T4 1.53 ng/dL (0.76-1.46) H 05/24/18 13:42 Urine Color Yellow (Yellw/Straw) 05/24/18 05:23 Urine Clarity Hazy (Clear) H 05/24/18 05:23 Urine pH 5.0 (5.0-8.5) 05/24/18 05:23 Ur Specific Jackson 1.013 (1.002-1.035) 05/24/18 05:23 Urine Protein Negative mg/dL (Neg-Trace) 05/24/18 05:23 Urine Glucose (UA) Negative mg/dL (Negative) 05/24/18 05:23 Urine Ketones Trace mg/dL (Negative) 05/24/18 05:23 Urine Occult Blood Small (Negative) H 05/24/18 05:23 Urine Nitrate Negative (Negative) 05/24/18 05:23 Urine Bilirubin Negative (Negative) 05/24/18 05:23 Urine Urobilinogen Less than 2 mg/dL (Less than 2) 05/24/18 05:23 Ur Leukocyte Esterase Negative (Negative) 05/24/18 05:23 Urine RBC 1 /hpf (0-3) 05/24/18 05:23 Urine WBC 2 /hpf (0-5) 05/24/18 05:23 Ur Squamous Epith Cells <1 /hpf (0-5) 05/24/18 05:23 Urine Mucus Moderate /lpf (Occasional) H 05/24/18 05:23 Micro UA Comment Culture not ind 05/24/18 05:23 Ur Microscopic Review Not Reportable 05/24/18 05:23 Urine Culture Comments Culture not ind 05/24/18 05:23 Impressions Chest X-Ray 05/23/18 22:38 CONCLUSION: No acute cardiopulmonary disease demonstrated. Abdomen X-Ray 05/24/18 00:00 CONCLUSION: 1. Persistent abnormally dilated small bowel although less distended than present on the a prior CT from approximately 12 hours ago. Consider additional follow-up imaging to confirm resolution of this abnormality. 2. Sigmoid diverticulosis. Abdomen/Pelvis CT 05/24/18 00:00 CONCLUSION: Study limited by metallic streak artifact from barium within the colon. There is evidence of acute small bowel obstruction, probably at the level of the proximal ileum and presumably related to adhesion. No perceptible mass. Labs on day of discharge: Labs from last 24 hours 05/25/18 05/25/18 05/24/18 05:33 05:33 13:42 WBC 4.7 RBC 4.25 L Hgb 13.5 Hct 37.9 L MCV 89.1 MCH 31.8 MCHC 35.7 RDW 13.2 Plt Count 147 L MPV 9.4 Neut % (Auto) 60.0 Lymph % (Auto) 27.1 Larue % (Auto) 10.1 H Eos % (Auto) 2.2 Baso % (Auto) 0.6 Neut # (Auto) 2.8 Lymph # (Auto) 1.3 Larue # (Auto) 0.5 Eos # (Auto) 0.1 Baso # (Auto) 0.0 WBC Differential . Differential Comment Auto diff final Sodium 141 Potassium 3.1 L Chloride 105 D Carbon Dioxide 26.4 Anion Gap 10 BUN 14 Creatinine 0.80 Estimated GFR Greater than 89 Random Glucose 73 L Hemoglobin A1c Calcium 8.1 L D Phosphorus 2.8 Magnesium 2.4 Total Bilirubin 0.4 AST 23 ALT 19 Alkaline Phosphatase 59 Total Protein 6.1 L D Albumin 2.9 L D TSH Cancelled Free T4 05/24/18 05/24/18 13:42 13:42 WBC RBC Hgb Hct MCV MCH MCHC RDW Plt Count MPV Neut % (Auto) Lymph % (Auto) Larue % (Auto) Eos % (Auto) Baso % (Auto) Neut # (Auto) Lymph # (Auto) Larue # (Auto) Eos # (Auto) Baso # (Auto) WBC Differential Differential Comment Sodium Potassium Chloride Carbon Dioxide Anion Gap BUN Creatinine Estimated GFR Random Glucose Hemoglobin A1c 5.5 Calcium Phosphorus Magnesium Total Bilirubin AST ALT Alkaline Phosphatase Total Protein Albumin TSH 0.593 Free T4 1.53 H - Impressions ITS Impressions Chest X-Ray 05/23/18 22:38 CONCLUSION: No acute cardiopulmonary disease demonstrated. Abdomen X-Ray 05/24/18 00:00 CONCLUSION: 1. Persistent abnormally dilated small bowel although less distended than present on the a prior CT from approximately 12 hours ago. Consider additional follow-up imaging to confirm resolution of this abnormality. 2. Sigmoid diverticulosis. Abdomen/Pelvis CT 05/24/18 00:00 CONCLUSION: Study limited by metallic streak artifact from barium within the colon. There is evidence of acute small bowel obstruction, probably at the level of the proximal ileum and presumably related to adhesion. No perceptible mass. Discharge Plan - Discharge Disposition Patient Disposition: 01 Discharge Home - Discharge Condition Condition: Good - Discharge Order Discharge Orders: Discharge Order (Routine); Ordered 05/25/18 Ordered By: Presley Nagel General Surgery Clear for Discharge (Routine); Ordered 05/25/18 Ordered By: Phillip Ribeiro - Discharge Details Anticipated Discharge Date: 05/25/18 Discharge Comment: DC TO HOME TODAY - Physicians Team Primary Care Provider: [facility] Attending Provider: Presley Nagel Other Providers: Sam Velarde MD
== END 2018-05-25 14:44 | disposition home or self-care (01) ==
LOC: NEPE 21:37 → NEDA 05-24 02:15 → NEPGCP 05-24 08:51
PROVIDERS: ADMIT Hospitalist; ATTEND Hospitalist